=== PATIENT | female | born 1955 | race Caucasian/White ===

== ENCOUNTER 2019-10-07 20:32 | Emergency (ER) | payer OTHER, SELFPAY ==
[2019-10-07] VITALS (11 sets, daily range): BP systolic 113–136; BP diastolic 72–79; PULSE 84–101; RESP 15–23; TEMP 36.6; O2SAT 91–98; BMI 21.9
--- NOTE | 2019-10-07 20:52 | XRR_ITS ---
PROCEDURE INFORMATION: Exam: XR Chest, 1 View Exam date and time: 10/07/2019 8:54 PM Age: 64 years old Clinical indication: Shortness of breath; Additional info: Admission TECHNIQUE: Imaging protocol: XR of the chest Views: 1 view. COMPARISON: CR Chest 1 [place] [id number] 09/02/2019 10:57 AM FINDINGS: Lungs: Emphysema. Stable interstitial scarring and atelectasis in the lung bases. Pleural space: Unremarkable. No pleural effusion. No pneumothorax. Heart/Mediastinum: Unremarkable. No cardiomegaly. Diaphragm: Partial eventration of the right and left diaphragm. Bones/joints: Lumbar fusion hardware. XR/XR chest 1V portable [id number] IMPRESSION: No acute findings.
--- NOTE | 2019-10-07 20:52 | ECG_ITS ---
Measurements Intervals [place] Rate: 91 P: -19 MA: 127 QRS: -21 QRSD: 77 T: -30 QT: 352 QTc: 435 SINUS RHYTHM LEFT ATRIAL ENLARGEMENT [-0.15mV P WAVE IN V1/V2] LOW QRS VOLTAGE IN PRECORDIAL LEADS [QRS DEFLECTION < 1.0 mV IN CHEST LEADS] ANTEROSEPTAL MYOCARDIAL INFARCTION , OF INDETERMINATE AGE [40+ ms Q WAVE IN V1-V4] Compared to ECG 08/30/2019 16:48:40 Low QRS voltage now present Indeterminate axis no longer present Myocardial infarct finding still present Electronically Signed On 10-08-2019 9:32:30 CONVENTIONAL MACHINIST by Beto Rivera M.D. [id number]
--- NOTE | 2019-10-07 20:58 | ECG_ITS ---
Measurements Intervals [place] Rate: 91 P: -19 UT: 127 QRS: -21 QRSD: 77 T: -30 QT: 352 QTc: 435 SINUS RHYTHM LEFT ATRIAL ENLARGEMENT [-0.15mV P WAVE IN V1/V2] LOW QRS VOLTAGE IN PRECORDIAL LEADS [QRS DEFLECTION < 1.0 mV IN CHEST LEADS] ANTEROSEPTAL MYOCARDIAL INFARCTION , OF INDETERMINATE AGE [40+ ms Q WAVE IN V1-V4] Compared to ECG 08/30/2019 16:48:40 Low QRS voltage now present Indeterminate axis no longer present Myocardial infarct finding still present Electronically Signed On 10-08-2019 9:32:26 TRANSIT MIXER DRIVER by Beto Rivera M.D. [id number]
--- NOTE | 2019-10-07 20:58 | ED_ITS ---
HPI - SOB/Dyspnea General: Chief Complaint: Shortness of Breath/Dyspnea Stated Complaint: SOB Time Seen by Provider: 10/07/19 20:48 History of Present Illness: HPI Narrative: Patient complains of shortness of breath for a long time. Was recently diagnosed with pneumonia. Patient has been increased shortness of breath the last 2 to 3 days. Does have productive cough. Does complain of fever. Patient is on 3 L nasal cannula at home recently started on Pulmicort MD elicited complaint: shortness of breath and cough Pertinent past history: COPD Context: recent illness Timing: constant and progressively worsening Severity: severe Exacerbating factors: lying flat, exertion and coughing Relieving factors: oxygen Associated symptoms: Reports chest congestion and fever(s); Deny abdominal pain, chest pain, extremity pain, nausea or vomiting Treatment prior to arrival: oxygen and bronchodilator Review of Systems Const: Reports: fever and chills; Denies: body aches Eyes: Denies: change in vision or blurry vision ENMT: Denies: throat pain or nasal congestion Card: Denies: chest pain or shortness of breath on exertion Resp: Reports: shortness of breath, productive cough, change in phlegm color and chest congestion; Denies: non-productive cough GI: Denies: abdominal pain, nausea or vomiting Musc: Denies: extremity pain Skin/Breast: Denies: rash Neuro: Denies: headache Psych: Denies: anxiety or depression Jenaro/Lymph: Denies: easy bruising PFSH ED PFSH: Statuses (acute, chronic, etc) shown below reflect problem list status as previously entered and may not be historically accurate Medical History (Updated 10/07/19 @ 23:11 by MARGIE Kennedy) Anxiety (Acute) Bilateral carotid artery stenosis (Acute) Carotid artery stenosis (Acute) Cervical post-laminectomy syndrome (Acute) COPD (chronic obstructive pulmonary disease) (Acute) Hyperlipidemia, unspecified (Acute) Left peroneal mononeuropathy (Acute) Low back pain (Acute) Lung nodule (Acute) PAD (peripheral artery disease) (Acute) Pseudarthrosis after fusion or arthrodesis (Acute) Sleep apnea (Acute) Spondylolisthesis, lumbar region (Acute) Surgical History (Updated 09/28/19 @ 13:06 by Maylin Whittaker MD) H/O eye surgery (Acute) History of appendectomy (Acute) History of back surgery (Acute) History of bladder surgery (Acute) History of cholecystectomy (Acute) History of hysterectomy (Acute) History of lumbar fusion (Acute) History of lumbar surgery (Acute) Social History Smoking and tobacco status: current every day smoker cigarettes Packs smoked per day: 1.5 Years cigarettes smoked: 40 Alcohol intake: never Lives independently: Yes Household members: spouse Marital status: Current occupational status: retired and disabled History of recent travel: No Current gender identity: Female Physical Exam Const: COMMON NORMALS: no apparent distress, average body habitus and oriented x3 HENMT: COMMON NORMALS: normocephalic HEAD & SCALP: normal to inspection and normocephalic FACE & SINUS: normal facial exam Eye: COMMON NORMALS: conjunctivae normal GENERAL EYE: normal appearance of both eyes CONJUNCTIVA: Yes conjunctivae normal Neck/C-Spine: COMMON NORMALS: no JVD Chest: COMMONS NORMALS: inspection of chest normal Resp: EFFORT & INSPECTION: Yes respiratory distress, Yes labored and Yes actively coughing AUSCULTATION: rales and diminished lung sounds Cardio: COMMON NORMALS: no JVD, regular rate and regular rhythm RATE: regular rate RHYTHM: regular rhythm GI: COMMON NORMALS: normal to inspection, nondistended, normoactive bowel sounds Extremity: COMMON NORMALS: normal to inspection and full ROM Neuro: COMMON NORMALS: oriented x3 Course Vital Signs: Vital signs: Vital Signs Temperature 97.8 F 10/07/19 20:39 Pulse Rate 86 10/07/19 23:00 Respiratory Rate 21 H 10/07/19 23:00 Blood Pressure 115/72 10/07/19 23:00 Pulse Oximetry 91 10/07/19 23:00 MDM - SOB/Dyspnea MDM Narrative: Medical decision making narrative: Discussed case with Dr. Clifton. Agreed on treatment plan. Order in for home to provide another full bottle of oxygen and a larger concentrator at home. Discussed this with community service officer coordinator and they will fax in 1. Lab Data: Labs: Lab Results 10/07/19 10/07/19 10/07/19 Range/Units 21:26 21:26 21:26 WBC 9.6 (4.0-10.0) 10^3/ uL RBC 5.14 (4.1-5.3) 10^6/u L Hgb 17.2 H (11.5-15.3) g/dL Hct 51.3 H (37.0-47.0) % MCV 99.8 H (81-99) fL MCH 33.5 (28.0-34.0) pg MCHC 33.5 (30.0-36.0) g/dL RDW 15.6 H (12.1-15.1) % Plt Count 154 (130-400) 10^3/c mm MPV 10.9 H (7.4-10.4) fL Neut % (Auto) 70.8 % Lymph % (Auto) 21.6 % Winston % (Auto) 6.9 % Eos % (Auto) 0.1 % Baso % (Auto) 0.2 % Neut # (Auto) 6.8 (1.8-7.7) 10^3/u L Lymph # (Auto) 2.1 (0.8-4.8) 10^3/u L Winston # (Auto) 0.7 (0.2-0.9) 10^3/u L Eos # (Auto) 0.0 (0.0-0.8) 10^3/u L Baso # (Auto) 0.0 (0.0-0.1) 10^3/u L Nucleated RBC % (a uto) 0.4 % Nucleated RBCs # 0.0 /100WBC Specimen Type Sample Site ABG pH (7.35-7.45) ABG pCO2 (35-45) mmHg ABG pO2 (80.0-100.0) mmH g ABG HCO3 (22-26) mmol/L ABG O2 Saturation ABG Base Excess (-2.0-2.0) mmol/ L Charles Test A-a O2 Gradient (5-10) mmHg Hematocrit (37-47) % Hgb O2 Saturation (95-100) % Carboxyhemoglobin (0.4-20.1) %THgb Methemoglobin (0.4-1.5) % Total Hemoglobin (12-16) g/dL Ionized Calcium (1.1-1.4) mmol/L O2 Delivery Device O2 Liters/Min % Vacuum Cooker Operator ID Sodium 141 (136-145) mmol/L Potassium 3.5 (3.5-5.1) mmol/L Chloride 93 L (98-107) mmol/L Carbon Dioxide 32 H (22-29) mmol/L Anion Gap 19.5 H (5-19) BUN 17 (8-23) mg/dL Creatinine 0.7 (0.5-0.9) mg/dL GFR Calculation 84.8 L (90-130) mL/min Glucose 101 (74-106) mg/dL Lactic Acid 1.0 (0.5-2.2) mmol/L Calcium 10.7 H (8.8-10.2) mg/Dl Total Bilirubin 0.6 (0.15-1.2) mg/dL AST 29 (0-32) U/L ALT 26 (0-33) U/L Alkaline Phosphata se 79 (35-105) IU/L Troponin T Baselin e (0-10) ng/mL Total Protein 6.6 (6.6-8.7) g/dL Albumin 3.3 L (3.5-5.2) g/dL Globulin 3.3 (1.3-4.6) g/dL 10/07/19 10/07/19 Range/Units 21:26 21:30 WBC (4.0-10.0) 10^3/ uL RBC (4.1-5.3) 10^6/u L Hgb (11.5-15.3) g/dL Hct (37.0-47.0) % MCV (81-99) fL MCH (28.0-34.0) pg MCHC (30.0-36.0) g/dL RDW (12.1-15.1) % Plt Count (130-400) 10^3/c mm MPV (7.4-10.4) fL Neut % (Auto) % Lymph % (Auto) % Winston % (Auto) % Eos % (Auto) % Baso % (Auto) % Neut # (Auto) (1.8-7.7) 10^3/u L Lymph # (Auto) (0.8-4.8) 10^3/u L Winston # (Auto) (0.2-0.9) 10^3/u L Eos # (Auto) (0.0-0.8) 10^3/u L Baso # (Auto) (0.0-0.1) 10^3/u L Nucleated RBC % (a uto) % Nucleated RBCs # /100WBC Specimen Type Arterial Sample Site Radial, left ABG pH 7.40 (7.35-7.45) ABG pCO2 58.3 H (35-45) mmHg ABG pO2 67.8 L (80.0-100.0) mmH g ABG HCO3 36.3 H (22-26) mmol/L ABG O2 Saturation 93.1 ABG Base Excess 8.7 H (-2.0-2.0) mmol/ L Charles Test Pos A-a O2 Gradient 12.6 H (5-10) mmHg Hematocrit 55.2 H (37-47) % Hgb O2 Saturation 89.1 L (95-100) % Carboxyhemoglobin 3.7 (0.4-20.1) %THgb Methemoglobin 0.6 (0.4-1.5) % Total Hemoglobin 18.0 H (12-16) g/dL Ionized Calcium 1.3 (1.1-1.4) mmol/L O2 Delivery Device Nc O2 Liters/Min 3.0 % Vacuum Cooker Operator ID [email or web address] Sodium 143.0 (136-145) mmol/L Potassium 3.4 L (3.5-5.1) mmol/L Chloride (98-107) mmol/L Carbon Dioxide (22-29) mmol/L Anion Gap (5-19) BUN (8-23) mg/dL Creatinine (0.5-0.9) mg/dL GFR Calculation (90-130) mL/min Glucose 89.0 (74-106) mg/dL Lactic Acid (0.5-2.2) mmol/L Calcium (8.8-10.2) mg/Dl Total Bilirubin (0.15-1.2) mg/dL AST (0-32) U/L ALT (0-33) U/L Alkaline Phosphata se (35-105) IU/L Troponin T Baselin e 46 H (0-10) ng/mL Total Protein (6.6-8.7) g/dL Albumin (3.5-5.2) g/dL Globulin (1.3-4.6) g/dL EKG Data^: EKG 1: EKG Interpretation Date: 10/07/19 EKG interpretation time: 20:56 Interpretation: SR, 91bpm, Left atrial enlargement EKG 2: EKG Interpretation Date: 10/07/19 EKG interpretation time: 23:16 Interpretation: Dr. Little reviewed, No change Discharge Plan Discharge Patient Disposition: Home, Self-Care Clinical Impression: Acute exacerbation of chronic obstructive airways disease Condition: Stable Prescriptions: New doxycycline hyclate 100 mg capsule 100 mg PO BID 10 Days Qty: 20 RF: 0 prednisone 10 mg tablet 10 mg PO DAILY Qty: 14 RF: 0 No Action ibuprofen 200 mg tablet 400 mg PO BID RF: 0 ipratropium-albuterol 0.5 mg-3 mg(2.5 mg base)/3 mL solution for nebulization 3 ml INHALATION BID PRNRF: 0 prednisone 10 mg tablet 10 mg PO ONCE RF: 0 benzonatate [Tessalon Perles] 100 mg capsule 100 mg PO TID PRNRF: 0 rizatriptan [Maxalt-MOBILITY ARCHITECT MANAGER] 10 mg tablet,disintegrating 10 mg PO ONCE PRNRF: 0 budesonide [Pulmicort] 0.5 mg/2 mL suspension for nebulization 0.5 mg INHALATION BID 90 Days Qty: 360 RF: 3 guaifenesin 600 mg tablet extended release 12hr 600 mg PO BID PRN (Reason: cough) Qty: 60 RF: 0 fluticasone propion-salmeterol [Advair Diskus] 100-50 mcg/dose blister with device 1 puff INHALATION BID RF: 0 albuterol sulfate 90 mcg/actuation aerosol powdr breath activated 2 inh INHALATION Q6H PRNRF: 0 albuterol sulfate 2.5 mg /3 mL (0.083 %) solution for nebulization 2.5 mg INHALATION Q4H PRNRF: 0 ipratropium bromide 0.03 % spray,non-aerosol 2 spray INTRANASAL BID RF: 0 calcium citrate-vitamin D3 315-200 mg-unit tablet 2 tab PO ONCE RF: 0 codeine-guaifenesin 10-100 mg/5 mL liquid 5 ml PO Q4H PRNRF: 0 cyclobenzaprine 10 mg tablet 10 mg PO BID PRNRF: 0 diazepam 5 mg tablet 5 mg PO TID PRNRF: 0 fluticasone propionate [Flonase Allergy Relief] 50 mcg/actuation spray,suspension 2 spray INTRANASAL BID RF: 0 gabapentin 600 mg tablet 600 mg PO TID RF: 0 hydrochlorothiazide 50 mg tablet 50 mg PO QAM RF: 0 magnesium 250 mg tablet 250 mg PO ONCE RF: 0 meclizine 25 mg tablet 25 mg PO TID RF: 0 melatonin 3 mg capsule 3 mg PO ONCE RF: 0 omeprazole 20 mg capsule,delayed release(DR/EC) 20 mg PO ONCE RF: 0 oxycodone 30 mg tablet 30 mg PO Q4H PRNRF: 0 potassium 99 mg tablet 99 mg PO ONCE RF: 0 Premarin 0.625 mg tablet 0.625 mg PO ONCE RF: 0 Probiotic Gold Acidophilus 1 billion cell capsule 1,000 mmu cells PO ONCE RF: 0 ranitidine HCl [Acid Control (ranitidine)] 150 mg tablet 150 mg PO BID RF: 0 montelukast [Singulair] 10 mg tablet 10 mg PO ONCE RF: 0 Spiriva with HandiHaler 18 mcg capsule, w/inhalation device 1 cap INHALATION ONCE RF: 0 Discharge Orders: Discharge Order (Routine); Ordered 10/07/19 Ordered By: Jonas Alex Referrals: Samantha Riggins APN [Primary Care Provider] - Discharge Diet: Usual diet Discharge Activity: Increase activity as tolerated Patient Instructions: Chronic Obstructive Pulmonary Disease (ED) Activity Restrictions/Additional Instructions: Follow-up with medical provider as directed. Take medications as prescribed. Return to the ER or your medical provider if condition worsens. Please read and understand discharge instructions. If any questions ask please. Home will be co ntacted and another bottle of oxygen will break be brought to the house plus a concentrator. Coding Level of Care Code ED Motel Maid for Chg Fwd Exam Problem Focused
--- NOTE | 2019-10-07 21:34 | PC.NURSE ---
XRAY IN ROOM
--- NOTE | 2019-10-07 21:34 | PC.NURSE ---
HCP IN ROOM
[2019-10-07 21:38] LABS: Basophils % 0.2 %; Eosinophils % 0.1 %; Hematocrit 51.3 % (37.0-47.0); Hemoglobin 17.2 g/dL (11.5-15.3); Lymphocytes # 2.1 10^3/uL (0.8-4.8); Lymphocytes % 21.6 %; Mean Corpuscular HGB Conc 33.5 g/dL (30.0-36.0); Mean Corpuscular Hemoglobin 33.5 pg (28.0-34.0); Mean Corpuscular Volume 99.8 fL (81-99); Mean Platelet Volume 10.9 fL (7.4-10.4); Monocytes # 0.7 10^3/uL (0.2-0.9); Monocytes % 6.9 %; Neutrophils # 6.8 10^3/uL (1.8-7.7); Neutrophils % 70.8 %; Nucleated Red Blood Cells % 0.4 %; Platelet Count 154 10^3/cmm (130-400); Red Blood Count 5.14 10^6/uL (4.1-5.3); Red Cell Distribution Width 15.6 % (12.1-15.1); White Blood Count 9.6 10^3/uL (4.0-10.0)
[2019-10-07 21:38] LABS: ABG PCO2 58.3 mmHg (35-45); Alveolar-Arterial Oxygen Gradi 12.6 mmHg (5-10); Arterial Blood Gas Hematocrit 55.2 % (37-47); Base Excess ABG 8.7 mmol/L (-2.0-2.0); Blood Gas Allen Test Pos; Blood Gas Sample Site Radial, left; Blood Gas Sample Type Arterial; Carboxyhemoglobin 3.7 %THgb (0.4-20.1); HCO3 ABG 36.3 mmol/L (22-26); HGB O2 Sat 89.1 % (95-100); Ionized Calcium Level - ABG 1.3 mmol/L (1.1-1.4); Methemoglobin 0.6 % (0.4-1.5); Oxygen Device NC; Oxygen Saturation ABG 93.1; PO2 ABG 67.8 mmHg (80.0-100.0); Potassium Level - ABG 3.4 mmol/L (3.5-5.0)
[2019-10-07] MEDS: ipratropium-albuterol 3 mL Neb INHALATION ×2 (21:40→22:55)
[2019-10-07 22:11] LABS: Troponin(5th) Baseline 46 ng/mL (0-10)
[2019-10-07 22:39] LABS: Alanine Aminotransferase 26 U/L (0-33); Albumin Level 3.3 g/dL (3.5-5.2); Alkaline Phosphatase 79 IU/L (35-105); Anion Gap 19.5 (5-19); Aspartate Amino Transferase 29 U/L (0-32); Blood Urea Nitrogen 17 mg/dL (8-23); Calcium 10.7 mg/Dl (8.8-10.2); Carbon Dioxide 32 mmol/L (22-29); Chloride 93 mmol/L (98-107); Globulin 3.3 g/dL (1.3-4.6); Glomerular Filtration Rate 84.8 mL/min (90-130); Glucose 101 mg/dL (74-106); Potassium 3.5 mmol/L (3.5-5.1); Sodium 141 mmol/L (136-145); Total Bilirubin 0.6 mg/dL (0.15-1.2); Total Protein 6.6 g/dL (6.6-8.7)
--- NOTE | 2019-10-07 22:58 | ECG_ITS ---
Measurements Intervals [place] Rate: 84 P: 82 CO: 113 QRS: 41 QRSD: 104 T: 89 QT: 379 QTc: 449 SINUS RHYTHM WITH SHORT CO INTERVAL POSSIBLE RIGHT ATRIAL ENLARGEMENT [0.25mV P WAVE] POSSIBLE LEFT ATRIAL ENLARGEMENT [-0.1mV P WAVE IN V1/V2] INDETERMINATE AXIS LOW QRS VOLTAGE IN PRECORDIAL LEADS [QRS DEFLECTION < 1.0 mV IN CHEST LEADS] ANTEROSEPTAL MYOCARDIAL INFARCTION , OF INDETERMINATE AGE [40+ ms Q WAVE IN V1-V4] Compared to ECG 08/30/2019 16:48:40 Short CO interval now present Low QRS voltage now present Myocardial infarct finding still present Electronically Signed On 10-08-2019 9:34:28 TUGBOAT OPERATOR by Beto Rivera M.D. [email or web address]
[2019-10-07] MEDS: doxycycline 100 mg Tablet PO (23:21)
[2019-10-07] MEDS: predniSONE 20 mg Tablet PO (23:21)
[2019-10-07 23:33] LABS: Troponin 5 2HR 41.18 ng/mL (0-10); Troponin 5 2HR Delta -4.82 ABS# (0-10)
== END 2019-10-07 23:41 | disposition home or self-care (01) ==
PROVIDERS: Emergency Provider Nurse Practitioner Family; Family Provider Nurse Practitioner; PCP Nurse Practitioner
DX: J44.1 Chronic obstructive pulmonary disease with (acute) exacerbation (principal); E78.5 Hyperlipidemia, unspecified; F17.210 Nicotine dependence, cigarettes, uncomplicated
CPT/HCPCS: 36415; 36600; 71045; 80051; 80053; 82810; 83605; 83986; 84484; 85025; 87040; 93005; 94640; 96374; 99283; J2930; J7512

== ENCOUNTER 2019-10-09 15:03 | Inpatient (IN) | payer OTHER, SELFPAY ==
[2019-10-09] VITALS (7 sets, daily range): BP systolic 75–151; BP diastolic 44–70; PULSE 75–98; RESP 15–22; TEMP 36.4–36.6; O2SAT 84–966; BMI 21.9
--- NOTE | 2019-10-09 15:20 | ED_ITS ---
Entered by Cheryl Yeh, acting as scribe for HPI - General Adult General: Chief complaint: General Medical Stated complaint: confused/sob Time Seen by Provider: 10/09/19 15:20 History of Present Illness: HPI narrative: 64 yo female presents with shortness of breath and confusion. Pts o2 sats were in the 80s in the waiting room. Pt states that she wan'ts to go home. Pt is confused and is repeating herself. Pt is has some o2 at home but doesn't typically use it all the time. states that pt has been slightly confused since being discharged on Wednesday from the ER. MD complaint: shortness of breath and confusion Associated symptoms: Reports dyspnea; Deny chest pain, malaise, nausea, rash or vomiting Review of Systems Const: Denies: fever, chills, body aches, change in appetite, fatigue or malaise ENMT: Denies: throat pain, ear pain, nasal discharge or nasal congestion Card: Reports: shortness of breath on exertion and shortness of breath when lying down; Denies: chest pain or edema Resp: Reports: shortness of breath; Denies: productive cough or non-productive cough GI: Denies: abdominal pain, nausea, vomiting, vomiting blood, coffee grounds in vomit, diarrhea, constipation, bloating, blood in stool or black tarry stool : Denies: flank pain, difficulty urinating, painful urination, urinary frequency or urinary urgency Skin/Breast: Denies: rash or itching PFSH ED PFSH: Statuses (acute, chronic, etc) shown below reflect problem list status as previously entered and may not be historically accurate Medical History Anxiety (Acute) Bilateral carotid artery stenosis (Acute) Carotid artery stenosis (Acute) Cervical post-laminectomy syndrome (Acute) COPD (chronic obstructive pulmonary disease) (Acute) Hyperlipidemia, unspecified (Acute) Left peroneal mononeuropathy (Acute) Low back pain (Acute) Lung nodule (Acute) PAD (peripheral artery disease) (Acute) Pseudarthrosis after fusion or arthrodesis (Acute) Sleep apnea (Acute) Spondylolisthesis, lumbar region (Acute) Surgical History H/O eye surgery (Acute) History of appendectomy (Acute) History of back surgery (Acute) History of bladder surgery (Acute) History of cholecystectomy (Acute) History of hysterectomy (Acute) History of lumbar fusion (Acute) History of lumbar surgery (Acute) Social History Smoking and tobacco status: current every day smoker cigarettes Packs smoked per day: 1.5 Years cigarettes smoked: 40 Alcohol intake: never Lives independently: Yes Household members: spouse Marital status: Current occupational status: retired and disabled History of recent travel: No Current gender identity: Female Physical Exam Const: COMMON NORMALS: apparent distress GENERAL APPEARANCE: cooperative and in distress ORIENTATION/CONSCIOUSNESS: Yes awake, Yes oriented to person and Yes confused HENMT: COMMON NORMALS: normocephalic, head/scalp atraumatic, hearing grossly normal bilaterally, external ears normal, EAC's normal, TM's normal bilaterally, nasal mucous membranes and turbinates normal, moist oral mucous membranes and oropharynx normal HEAD & SCALP: normocephalic and atraumatic NOSE: nasal mucous membranes and turbinates normal EXTERNAL EAR: Yes external ears normal EXTERNAL AUDITORY CANAL: EAC's normal TYMPANIC MEMBRANE: TM's normal bilaterally Eye: COMMON NORMALS: PERRL, EOMs intact bilaterally, conjunctivae normal and no scleral icterus CONJUNCTIVA: Yes conjunctivae normal PUPIL: Yes PERRL Neck/C-Spine: COMMON NORMALS: full ROM, no lymphadenopathy, supple and no JVD Lymph: LYMPHATIC: no lymphadenopathy noted and no lymphedema noted Resp: COMMON NORMALS: normal respiratory effort, no retractions, no use of accessory muscles and clear to auscultation bilaterally AUSCULTATION: clear to auscultation bilaterally Cardio: COMMON NORMALS: no JVD, regular rate, regular rhythm and no murmurs RATE: regular rate RHYTHM: regular rhythm GI: COMMON NORMALS: soft to palpation and no hepatosplenomegaly AUSCULTATION: Yes normoactive bowel sounds PALPATION: Yes soft, No tender, No guarding and Yes no hepatosplenomegaly Extremity: COMMON NORMALS: normal to inspection, normal capillary refill, no clubbing, cyanosis or edema, no calf tenderness and no pedal edema Neuro: SENSORIUM/ORIENTATION: Yes oriented to person Skin: COMMON NORMALS: no rashes or lesions noted GENERAL SKIN EXAM: no rashes or lesions noted Course Vital Signs: Vital signs: Vital Signs Temperature 99.0 F 10/11/19 03:00 Pulse Rate 89 10/11/19 03:57 Respiratory Rate 20 H 10/11/19 03:53 Blood Pressure 132/85 10/11/19 03:00 Pulse Oximetry 98 10/11/19 03:53 MDM - General Adult Lab Data: Labs: Lab Results 10/09/19 10/09/19 10/09/19 Range/Units 15:47 15:54 15:54 WBC 10.8 H (4.0-10.0) 10^3/ uL RBC 4.98 (4.1-5.3) 10^6/u L Hgb 17.1 H (11.5-15.3) g/dL Hct 51.2 H (37.0-47.0) % MCV 102.8 H (81-99) fL MCH 34.3 H (28.0-34.0) pg MCHC 33.4 (30.0-36.0) g/dL RDW 16.4 H (12.1-15.1) % Plt Count 150 (130-400) 10^3/c mm MPV 11.2 H (7.4-10.4) fL Neut % (Auto) 86.7 % Lymph % (Auto) 9.1 % [place] % (Auto) 3.6 % Eos % (Auto) 0.1 % Baso % (Auto) 0.1 % Neut # (Auto) 9.3 H (1.8-7.7) 10^3/u L Lymph # (Auto) 1.0 (0.8-4.8) 10^3/u L [place] # (Auto) 0.4 (0.2-0.9) 10^3/u L Eos # (Auto) 0.0 (0.0-0.8) 10^3/u L Baso # (Auto) 0.0 (0.0-0.1) 10^3/u L Nucleated RBC % (a uto) 0 % Nucleated RBCs # 0.0 /100WBC D-Dimer (0-0.59) ug/mIFE U Specimen Type Arterial Sample Site Brachial, left ABG pH 7.48 H (7.35-7.45) ABG pCO2 46.0 H (35-45) mmHg ABG pO2 65.0 L (80.0-100.0) mmH g ABG HCO3 34.4 H (22-26) mmol/L ABG O2 Saturation 92.8 ABG Base Excess 9.3 H (-2.0-2.0) mmol/ L Charles Test Pos A-a O2 Gradient 135.9 H (5-10) mmHg Hematocrit 52.6 H (37-47) % Hgb O2 Saturation 91.0 L (95-100) % Carboxyhemoglobin 1.5 (0.4-20.1) %THgb Methemoglobin 0.4 (0.4-1.5) % Total Hemoglobin 17.1 H (12-16) g/dL Sodium 142.0 142 (131-143) mmol/L Potassium 3.4 L 3.5 (3.5-5.0) mmol/L Glucose 106.0 110 H (70-115) mg/dL Ionized Calcium 1.2 (1.1-1.4) mmol/L O2 Delivery Device Nc O2 Liters/Min 4.0 % FiO2 36.0 % Commission Associate ID cak Chloride 93 L (98-107) mmol/L Carbon Dioxide 32 H (22-29) mmol/L Anion Gap 20.5 H (5-19) BUN 21 (8-23) mg/dL Creatinine 0.8 (0.5-0.9) mg/dL GFR Calculation 72.7 L (90-130) mL/min Lactate (0.5-2.2) mmol/L Calcium 9.7 (8.8-10.2) mg/Dl Total Bilirubin 0.7 (0.15-1.2) mg/dL AST 32 (0-32) U/L ALT 23 (0-33) U/L Alkaline Phosphata se 69 (35-105) IU/L Total Protein 6.7 (6.6-8.7) g/dL Albumin 3.4 L (3.5-5.2) g/dL Globulin 3.3 (1.3-4.6) g/dL Lipase 3 L (13-60) U/L Urine Color (Yellow) Urine Appearance (CLEAR) Urine pH (5-7) Ur Specific Gravit y (1.005-1.030) Urine Protein (Negative) Urine Glucose (UA) (Normal) Urine Ketones (Negative) Urine Occult Blood (Negative) Urine Nitrate (Negative) Urine Bilirubin (NEGATIVE) Prot Sulfosalicyli c Acd Urine Urobilinogen (Negative) mg/dL Ur Leukocyte Isaura ase (Negative) Urine RBC (0-2) /hpf Urine WBC (0-5) /hpf Ur Squamous Epith Cells (0-5) Amorphous Sediment Urine Bacteria (NONE) Salicylates < 0.3 L (3-10) mg/dL Urine Opiates Scre en (Negative) ng/mL Acetaminophen < 5.0 L (10-30) ug/mL Ur Barbiturates Sc reen (Negative) ng/mL Ur Phencyclidine S crn (Negative) ng/mL Ur Amphetamines Sc reen (Negative) ng/mL U Benzodiazepines Scrn (Negative) ng/mL Urine Cocaine Scre en (Negative) ng/mL U Marijuana (THC) Screen (Negative) ng/mL Ethyl Alcohol < 10 (0-10) mg/dL Serum Ketones (Negative) 10/09/19 10/09/19 10/09/19 Range/Units 15:54 15:54 16:30 WBC (4.0-10.0) 10^3/ uL RBC (4.1-5.3) 10^6/u L Hgb (11.5-15.3) g/dL Hct (37.0-47.0) % MCV (81-99) fL MCH (28.0-34.0) pg MCHC (30.0-36.0) g/dL RDW (12.1-15.1) % Plt Count (130-400) 10^3/c mm MPV (7.4-10.4) fL Neut % (Auto) % Lymph % (Auto) % [place] % (Auto) % Eos % (Auto) % Baso % (Auto) % Neut # (Auto) (1.8-7.7) 10^3/u L Lymph # (Auto) (0.8-4.8) 10^3/u L [place] # (Auto) (0.2-0.9) 10^3/u L Eos # (Auto) (0.0-0.8) 10^3/u L Baso # (Auto) (0.0-0.1) 10^3/u L Nucleated RBC % (a uto) % Nucleated RBCs # /100WBC D-Dimer 6.91 H (0-0.59) ug/mIFE U Specimen Type Sample Site ABG pH (7.35-7.45) ABG pCO2 (35-45) mmHg ABG pO2 (80.0-100.0) mmH g ABG HCO3 (22-26) mmol/L ABG O2 Saturation ABG Base Excess (-2.0-2.0) mmol/ L Charles Test A-a O2 Gradient (5-10) mmHg Hematocrit (37-47) % Hgb O2 Saturation (95-100) % Carboxyhemoglobin (0.4-20.1) %THgb Methemoglobin (0.4-1.5) % Total Hemoglobin (12-16) g/dL Sodium (131-143) mmol/L Potassium (3.5-5.0) mmol/L Glucose (70-115) mg/dL Ionized Calcium (1.1-1.4) mmol/L O2 Delivery Device O2 Liters/Min % FiO2 % Commission Associate ID Chloride (98-107) mmol/L Carbon Dioxide (22-29) mmol/L Anion Gap (5-19) BUN (8-23) mg/dL Creatinine (0.5-0.9) mg/dL GFR Calculation (90-130) mL/min Lactate 1.1 (0.5-2.2) mmol/L Calcium (8.8-10.2) mg/Dl Total Bilirubin (0.15-1.2) mg/dL AST (0-32) U/L ALT (0-33) U/L Alkaline Phosphata se (35-105) IU/L Total Protein (6.6-8.7) g/dL Albumin (3.5-5.2) g/dL Globulin (1.3-4.6) g/dL Lipase (13-60) U/L Urine Color (Yellow) Urine Appearance (CLEAR) Urine pH (5-7) Ur Specific Gravit y (1.005-1.030) Urine Protein (Negative) Urine Glucose (UA) (Normal) Urine Ketones (Negative) Urine Occult Blood (Negative) Urine Nitrate (Negative) Urine Bilirubin (NEGATIVE) Prot Sulfosalicyli c Acd Urine Urobilinogen (Negative) mg/dL Ur Leukocyte Isaura ase (Negative) Urine RBC (0-2) /hpf Urine WBC (0-5) /hpf Ur Squamous Epith Cells (0-5) Amorphous Sediment Urine Bacteria (NONE) Salicylates (3-10) mg/dL Urine Opiates Scre en (Negative) ng/mL Acetaminophen (10-30) ug/mL Ur Barbiturates Sc reen (Negative) ng/mL Ur Phencyclidine S crn (Negative) ng/mL Ur Amphetamines Sc reen (Negative) ng/mL U Benzodiazepines Scrn (Negative) ng/mL Urine Cocaine Scre en (Negative) ng/mL U Marijuana (THC) Screen (Negative) ng/mL Ethyl Alcohol (0-10) mg/dL Serum Ketones Negative (Negative) 10/09/19 10/09/19 Range/Units 17:16 17:16 WBC (4.0-10.0) 10^3/ uL RBC (4.1-5.3) 10^6/u L Hgb (11.5-15.3) g/dL Hct (37.0-47.0) % MCV (81-99) fL MCH (28.0-34.0) pg MCHC (30.0-36.0) g/dL RDW (12.1-15.1) % Plt Count (130-400) 10^3/c mm MPV (7.4-10.4) fL Neut % (Auto) % Lymph % (Auto) % [place] % (Auto) % Eos % (Auto) % Baso % (Auto) % Neut # (Auto) (1.8-7.7) 10^3/u L Lymph # (Auto) (0.8-4.8) 10^3/u L [place] # (Auto) (0.2-0.9) 10^3/u L Eos # (Auto) (0.0-0.8) 10^3/u L Baso # (Auto) (0.0-0.1) 10^3/u L Nucleated RBC % (a uto) % Nucleated RBCs # /100WBC D-Dimer (0-0.59) ug/mIFE U Specimen Type Sample Site ABG pH (7.35-7.45) ABG pCO2 (35-45) mmHg ABG pO2 (80.0-100.0) mmH g ABG HCO3 (22-26) mmol/L ABG O2 Saturation ABG Base Excess (-2.0-2.0) mmol/ L Charles Test A-a O2 Gradient (5-10) mmHg Hematocrit (37-47) % Hgb O2 Saturation (95-100) % Carboxyhemoglobin (0.4-20.1) %THgb Methemoglobin (0.4-1.5) % Total Hemoglobin (12-16) g/dL Sodium (131-143) mmol/L Potassium (3.5-5.0) mmol/L Glucose (70-115) mg/dL Ionized Calcium (1.1-1.4) mmol/L O2 Delivery Device O2 Liters/Min % FiO2 % Commission Associate ID Chloride (98-107) mmol/L Carbon Dioxide (22-29) mmol/L Anion Gap (5-19) BUN (8-23) mg/dL Creatinine (0.5-0.9) mg/dL GFR Calculation (90-130) mL/min Lactate (0.5-2.2) mmol/L Calcium (8.8-10.2) mg/Dl Total Bilirubin (0.15-1.2) mg/dL AST (0-32) U/L ALT (0-33) U/L Alkaline Phosphata se (35-105) IU/L Total Protein (6.6-8.7) g/dL Albumin (3.5-5.2) g/dL Globulin (1.3-4.6) g/dL Lipase (13-60) U/L Urine Color Dark yellow (Yellow) Urine Appearance Hazy A (CLEAR) Urine pH 9 H (5-7) Ur Specific Gravit y 1.015 (1.005-1.030) Urine Protein Neg (Negative) Urine Glucose (UA) Norm (Normal) Urine Ketones 2+ H (Negative) Urine Occult Blood Neg (Negative) Urine Nitrate Negative (Negative) Urine Bilirubin Neg (NEGATIVE) Prot Sulfosalicyli c Acd Negative Urine Urobilinogen 1 H (Negative) mg/dL Ur Leukocyte Isaura ase Negative (Negative) Urine RBC None (0-2) /hpf Urine WBC 0-4 H (0-5) /hpf Ur Squamous Epith Cells 0-4 H (0-5) Amorphous Sediment 2+ Urine Bacteria Trace (NONE) Salicylates (3-10) mg/dL Urine Opiates Scre en Negative (Negative) ng/mL Acetaminophen (10-30) ug/mL Ur Barbiturates Sc reen Negative (Negative) ng/mL Ur Phencyclidine S crn Negative (Negative) ng/mL Ur Amphetamines Sc reen Negative (Negative) ng/mL U Benzodiazepines Scrn Positive H (Negative) ng/mL Urine Cocaine Scre en Negative (Negative) ng/mL U Marijuana (THC) Screen Negative (Negative) ng/mL Ethyl Alcohol (0-10) mg/dL Serum Ketones (Negative) Imaging Data^: CT Head: Radiologist's impression: Signed Patient: Autumn Anne Unit #: [id number] : 1955 Age/Sex: 64 / F ADM Date: 10/09/19 Loc: ER Room/Bed: Attending Dr: Ordering Provider/Ordering MD: Richard Eugene DO Date of Service: 10/09/19 Procedure(s): CT head wo con* [id number] Accession Number(s): [id number] Report Number: [id number] PROCEDURE INFORMATION: Exam: CT Head Without Contrast Exam date and time: 10/09/2019 4:05 PM Age: 64 years old Clinical indication: Altered mental status/memory loss; Other: Not specified; Additional info: AMS TECHNIQUE: Imaging protocol: Computed tomography of the head without contrast. Total DLP: 760.49 mGy-cm Radiation optimization: All CT scans at this facility use at least one of these dose optimization techniques: automated exposure control; mA and/or kV adjustment per patient size (includes targeted exams where dose is matched to clinical indication); or iterative reconstruction. COMPARISON: No relevant prior studies available. FINDINGS: Brain: No acute intracranial hemorrhage, cerebral edema, or midline shift. Ventricles: There is no hydrocephalus. An incidental 7 mm colloid cyst is noted within the 3rd ventricle. Bones/joints: No acute fracture. Sinuses: No acute sinusitis. Mastoid air cells: Visualized mastoid air cells are well aerated. Soft tissues: Unremarkable. CT/CT head wo con* [id number] IMPRESSION: No acute intracranial abnormality. Radiation Dose CTDIVOL = (mGy): DLP = 760.49 (mGy-cm) Dictated By: Yakov Mitchell MD Signed By: Yakov Mitchell MD Signed Date/Time: 10/09/191706 DD/ 05 CXR: Radiologist's impression: Patient: Autumn Anne Unit #: [id number] : [id number] Age/Sex: 64 / F ADM Date: 10/09/19 Loc: ER Room/Bed: Attending Dr: Ordering Provider/Ordering MD: Richard Eugene DO Date of Service: 10/09/19 Procedure(s): XR chest 1V portable [id number] Accession Number(s): [id number] Report Number: [id number] PROCEDURE INFORMATION: Exam: XR Chest, 1 View Exam date and time: 10/09/2019 3:39 PM Age: 64 years old Clinical indication: Condition or disease; Other: Copd; Additional info: Amd, copd TECHNIQUE: Imaging protocol: XR of the chest Views: 1 view. COMPARISON: CR (CHEST, ) 10/07/2019 9:13 PM FINDINGS: Lungs: Unremarkable. No consolidation. Pleural space: Unremarkable. No pleural effusion. No pneumothorax. Heart/Mediastinum: Unremarkable. No cardiomegaly. Bones/joints: Postsurgical hardware seen in the lumbar spine XR/XR chest 1V portable [id number] IMPRESSION: No acute findings. Dictated By: Mendoza Genao Signed By: Mendoza Genao Signed Date/Time: 10/09/191651 DD/ 50 Discharge Plan Discharge Patient Disposition: Admitted As Inpatient Admit Provider: Cam Mariee Condition: Stable Discharge Date/Time: 10/09/19 18:58 Coding Level of Care Code ED Bullet Casting Operator for Chg Fwd Exam Problem Focused The documentation recorded by the Rao jonas Kialy, accurately reflects the service I personally performed and the decisions made by Valorie lambert Curtis L, DO Oct 09, 2019 15:03
--- NOTE | 2019-10-09 15:36 | XRR_ITS ---
PROCEDURE INFORMATION: Exam: XR Chest, 1 View Exam date and time: 10/09/2019 3:39 PM Age: 64 years old Clinical indication: Condition or disease; Other: Copd; Additional info: Amd, copd TECHNIQUE: Imaging protocol: XR of the chest Views: 1 view. COMPARISON: CR (CHEST, ) 10/07/2019 9:13 PM FINDINGS: Lungs: Unremarkable. No consolidation. Pleural space: Unremarkable. No pleural effusion. No pneumothorax. Heart/Mediastinum: Unremarkable. No cardiomegaly. Bones/joints: Postsurgical hardware seen in the lumbar spine XR/XR chest 1V portable [id number] IMPRESSION: No acute findings.
--- NOTE | 2019-10-09 15:39 | CTR_ITS ---
PROCEDURE INFORMATION: Exam: CT Head Without Contrast Exam date and time: 10/09/2019 4:05 PM Age: 64 years old Clinical indication: Altered mental status/memory loss; Other: Not specified; Additional info: AMS TECHNIQUE: Imaging protocol: Computed tomography of the head without contrast. Total DLP: 760.49 mGy-cm Radiation optimization: All CT scans at this facility use at least one of these dose optimization techniques: automated exposure control; mA and/or kV adjustment per patient size (includes targeted exams where dose is matched to clinical indication); or iterative reconstruction. COMPARISON: No relevant prior studies available. FINDINGS: Brain: No acute intracranial hemorrhage, cerebral edema, or midline shift. Ventricles: There is no hydrocephalus. An incidental 7 mm colloid cyst is noted within the 3rd ventricle. Bones/joints: No acute fracture. Sinuses: No acute sinusitis. Mastoid air cells: Visualized mastoid air cells are well aerated. Soft tissues: Unremarkable. CT/CT head wo con* [id number] IMPRESSION: No acute intracranial abnormality. Radiation Dose CTDIVOL = (mGy): DLP = 760.49 (mGy-cm)
[2019-10-09] MEDS: sodium chloride 0.9% 500 ML IV (15:40)
[2019-10-09 15:57] LABS: ABG PH Result 7.48 (7.35-7.45); Alveolar-Arterial Oxygen Gradi 135.9 mmHg (5-10); Arterial Blood Gas Hematocrit 52.6 % (37-47); Base Excess ABG 9.3 mmol/L (-2.0-2.0); Blood Gas Allen Test Pos; Blood Gas Sample Site Brachial, left; Blood Gas Sample Type Arterial; Carboxyhemoglobin 1.5 %THgb (0.4-20.1); HCO3 ABG 34.4 mmol/L (22-26); Ionized Calcium Level - ABG 1.2 mmol/L (1.1-1.4); Methemoglobin 0.4 % (0.4-1.5); Oxygen Device NC; Oxygen Saturation ABG 92.8; Potassium Level - ABG 3.4 mmol/L (3.5-5.0); Total Hemoglobin 17.1 g/dL (12-16)
[2019-10-09 16:05] LABS: Basophils % 0.1 %; Eosinophils % 0.1 %; Hematocrit 51.2 % (37.0-47.0); Hemoglobin 17.1 g/dL (11.5-15.3); Lymphocytes % 9.1 %; Mean Corpuscular HGB Conc 33.4 g/dL (30.0-36.0); Mean Corpuscular Hemoglobin 34.3 pg (28.0-34.0); Mean Corpuscular Volume 102.8 fL (81-99); Mean Platelet Volume 11.2 fL (7.4-10.4); Monocytes # 0.4 10^3/uL (0.2-0.9); Monocytes % 3.6 %; Neutrophils # 9.3 10^3/uL (1.8-7.7); Neutrophils % 86.7 %; Nucleated Red Blood Cells % 0 %; Platelet Count 150 10^3/cmm (130-400); Red Blood Count 4.98 10^6/uL (4.1-5.3); Red Cell Distribution Width 16.4 % (12.1-15.1); White Blood Count 10.8 10^3/uL (4.0-10.0)
[2019-10-09] MEDS: ipratropium-albuterol 3 mL Neb INHALATION (16:08)
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
[2019-10-09 16:26] LABS: Acetaminophen < 5.0 ug/mL (10-30); Alanine Aminotransferase 23 U/L (0-33); Albumin Level 3.4 g/dL (3.5-5.2); Alcohol Level < 10 mg/dL (0-10); Alkaline Phosphatase 69 IU/L (35-105); Anion Gap 20.5 (5-19); Aspartate Amino Transferase 32 U/L (0-32); Blood Urea Nitrogen 21 mg/dL (8-23); Calcium 9.7 mg/Dl (8.8-10.2); Carbon Dioxide 32 mmol/L (22-29); Chloride 93 mmol/L (98-107); Globulin 3.3 g/dL (1.3-4.6); Glomerular Filtration Rate 72.7 mL/min (90-130); Glucose 110 mg/dL (74-106); Lipase 3 U/L (13-60); Potassium 3.5 mmol/L (3.5-5.1); Salicylate < 0.3 mg/dL (3-10); Sodium 142 mmol/L (136-145); Total Bilirubin 0.7 mg/dL (0.15-1.2); Total Protein 6.7 g/dL (6.6-8.7)
[2019-10-09 16:32] LABS: Ketone (Acetest) Serum Negative (Negative)
[2019-10-09 16:53] LABS: Lactate (Lactic Acid level) 1.1 mmol/L (0.5-2.2)
--- NOTE | 2019-10-09 16:57 | PC.PHAR ---
pt and pts son unsure of all the medications the pt takes. pts son states they were here wednesday and we should have all of her medications
--- NOTE | 2019-10-09 17:05 | PC.NURSE ---
At bedside to perform catheter for urine collection. of patient states he is not comfortable with a male performing a straight-cath on his . The charge nurse (female) will perform the procedure once finished with her current task.
--- NOTE | 2019-10-09 17:49 | PC.NURSE ---
Pox 81%. To room and found NC laying on chest. The pateint's is seated directly next to the pateint. He will encourage her to keep the oxygen on. POX now 95%
[2019-10-09 17:52] LABS: Amphetamines Screen Urine Negative (Negative); Barbiturates Screen Urine Negative (Negative); Benzodiazepines Screen Urine Positive (Negative); Cocaine Screen Urine Negative (Negative); Opiate Screen Urine Negative (Negative); PCP Screen Urine Negative (Negative); THC Screen Urine Negative (Negative)
[2019-10-09 17:55] LABS: Add Urine Microscopic? YES; Bilirubin Urine Neg (NEGATIVE); Blood Urine Neg (Negative); Glucose Urine UA Norm (Normal); Ketones Urine 2+ (Negative); Leukocyte Esterase Urine Negative (Negative); Nitrate Urine Negative (Negative); Protein Urine Neg (Negative); Specific Gravity, Urine 1.015 (1.005-1.030); Sulfosalicylic Acid Urine Negative; Urine Appearance Hazy (CLEAR); Urine Color Dark Yellow (Yellow); Urobilinogen Urine 1 mg/dL (Negative); pH Urine 9 (5-7)
[2019-10-09 18:03] LABS: Add Urine Culture? No; Amorphous Sediment Urine 2+; Bacteria Urine TRACE; Squamous Epithelial Cell Urine 0-4 (0-5); WBC Urine 0-4 /hpf (0-5)
--- NOTE | 2019-10-09 18:18 | ECG_ITS ---
Measurements Intervals Transfer Rate: 83 P: 70 CT: 122 QRS: 33 QRSD: 85 T: -32 QT: 307 QTc: 361 SINUS RHYTHM POSSIBLE LEFT ATRIAL ENLARGEMENT [-0.1mV P WAVE IN V1/V2] LOW QRS VOLTAGE IN PRECORDIAL LEADS [QRS DEFLECTION < 1.0 mV IN CHEST LEADS] NONSPECIFIC ST & T-WAVE ABNORMALITY Compared to ECG 10/07/2019 22:56:09 T-wave abnormality now present Short CT interval no longer present Indeterminate axis no longer present Myocardial infarct finding no longer present Electronically Signed On 10-10-2019 21:55:34 SALES COMMISSIONS ANALYST by Celi Munson M.D. [email or web address]
[2019-10-09] MEDS: sodium chloride 0.9% 1,000 ML 999 ML IV (18:31)
[2019-10-09 18:56] LABS: D Dimer 6.91 ug/mIFEU (0-0.59)
--- NOTE | 2019-10-09 20:18 | ECG_ITS ---
Measurements Intervals [place] Rate: 70 P: 68 GA: 126 QRS: 1 QRSD: 87 T: -27 QT: 396 QTc: 428 SINUS RHYTHM POSSIBLE LEFT ATRIAL ENLARGEMENT [-0.1mV P WAVE IN V1/V2] ST DEVIATION AND MODERATE T-WAVE ABNORMALITY, CONSIDER ANTERIOR ISCHEMIA [-0.1+ mV T WAVE IN V3/V4] Compared to ECG 10/07/2019 22:56:09 T-wave abnormality now present Possible ischemia now present Short GA interval no longer present Indeterminate axis no longer present Myocardial infarct finding no longer present Electronically Signed On 10-10-2019 22:07:16 ROLL FINISHER by Celi Munson M.D. [email or web address]
[2019-10-09 20:32] LABS: Troponin(5th) Baseline 26 ng/mL (0-10)
--- NOTE | 2019-10-09 20:39 | CTR_ITS ---
PROCEDURE INFORMATION: Exam: CT Angiography Chest With Contrast Exam date and time: 10/09/2019 9:44 PM Age: 64 years old Clinical indication: Other: Hypoxia; Additional info: Hypoxia and high d dimer TECHNIQUE: Imaging protocol: Computed tomographic angiography of the chest with intravenous contrast. 3D rendering: MIP and/or 3D reconstructed images were created by the technologist. Total DLP: 634.11 mGy-cm Radiation optimization: All CT scans at this facility use at least one of these dose optimization techniques: automated exposure control; mA and/or kV adjustment per patient size (includes targeted exams where dose is matched to clinical indication); or iterative reconstruction. Contrast material: OMNIPAQUE 350; Contrast volume: 95 ml; Contrast route: IV; COMPARISON: CT Chest w IV contrast* [id number] 12/30/2018 10:39 AM FINDINGS: Pulmonary arteries: Pulmonary embolic filling defect in pulmonary artery to lingula as far central as proximal 2nd order artery. Aorta: Aortic calcifications. Lungs: New areas of airspace disease in lingula representing infiltrate and/or atelectasis in lingula. Nodule with irregular margins anterior apical segment left upper lobe estimated at 1.4 cm x 0.8 cm by 0.7 cm mildly more prominent. Motion degradation partially obscures right middle lobe nodule but no gross change. Pleural space: Unremarkable. No pneumothorax. No pleural effusion. Heart: Mild coronary calcifications. Lymph nodes: Unremarkable. No enlarged lymph nodes. Bones/joints: Unremarkable. No acute fracture. Soft tissues: Lumbar surgical changes are noted. CT/CT angio chest PE protcl [id number] IMPRESSION: Pulmonary embolus involving lingular pulmonary artery. Mild increase in irregular nodule anterior left lung apex; consider biopsy or PET-CT. Radiation Dose CTDIVOL = (mGy): DLP = 634.11 (mGy-cm)
[2019-10-09 21:41] LABS: Glucose Point of Care 133 mg/dL (70-110)
[2019-10-09] MEDS: iodixanol 320 mg/mL 100mL Btl IV (22:27)
[2019-10-09 22:33] LABS: Troponin 5 2HR 25.16 ng/mL (0-10)
[2019-10-09 22:36] LABS: Troponin 5 2HR Delta -0.84 ABS# (0-10)
[2019-10-09] MEDS: cefTRIAXone 1,000 MG in sodium chloride 0.9% (plus) 50 ML 100 MG IV (23:07)
[2019-10-09] MEDS: sodium chloride 0.9% 1,000 ML 150 ML IV (23:08)
[2019-10-10] VITALS (7 sets, daily range): BP systolic 136–148; BP diastolic 71–96; PULSE 65–93; RESP 16–22; TEMP 36.4–37.1; O2SAT 92–100
--- NOTE | 2019-10-10 00:28 | PM.HP ---
Providers/Chief Complaint Admitting Physician: Cam Mariee Primary Care Provider: Samantha Riggins APN Chief Complaint: AMS History of Present Illness Autumn Anne is a 64 year old female who carries diagnoses of oxygen dependent 2 L COPD at home, obstructive sleep apnea (not using CPAP at home), chronic back pain(uses oxycodone), hypothyroidism, hypertension, anxiety depression and GERD presented to emergency department with 2 to 3-day history of shortness of breath. Patient was brought in by her who is endorsing that she was seen in the emergency department 2 days ago for her shortness of breath she was given Z-Aden and Medrol for her shortness of breath. At home she has been more confused has not been taking her medication at all and is coughing a lot. She was confused at the time of arrival to ER when I saw her she was much more awake and alert patient was telling me that she did not experience any runny nose, runny eyes, fever, chills but she is suffering from night sweats, she is not sure but may be some weight loss, her appetite is poor, she has not noticed any fevers, sick contacts. She has been having more shortness of breath with dry cough, her excessive coughing is hurting her rib cage which is bothering her very much. Her cough is dry she is not able to bring any sputum but she thinks she is congested. She is leading a sedentary lifestyle not very active at home, she quit smoking about 1 week ago. At home she has been taking antidepressants, Klonopin, she had normal hemodynamics but she was hypoxic on 4 L nasal cannula 65 PaO2 on blood gas with respiratory alkalosis, EKG showed normal sinus rhythm, patient was experiencing excessive bouts of dry cough, polycythemia hemoglobin 17 on diagnostics, I ordered CTA chest because of her d-dimer which came back positive for lingular PE with irregular left apical nodule which is bigger as compared to her previous CT scan Review of Systems Const: Reports: chills, body aches, change in appetite, change in weight, fatigue, malaise, night sweats, diaphoresis and daytime sleepiness; Denies: fever Eyes: Denies: change in vision ENMT: Denies: throat pain Card: Denies: chest pain Resp: Reports: shortness of breath and non-productive cough; Denies: productive cough GI: Denies: abdominal pain, nausea or vomiting : Denies: flank pain Musc: Denies: neck pain Skin/Breast: Denies: rash Neuro: Denies: headache Psych: Denies: anxiety Endo: Denies: excessive urination Jenaro/Lymph: Reports: easy bruising, easy bleeding, petechiae and purpura All/Imm: Denies: hives Medications/Allergies Home Medications Medication Instructions Recorded Confirmed Last Taken Type aspirin [Aspir-81] 81 mg PO DAILY 10/09/19 10/09/19 Unknown History diclofenac sodium 4 g TOPICAL DAILY PRN 10/09/19 10/09/19 Unknown History lidocaine [Lidoderm] See Rx Instructions .ROUTE .COMPLEX 10/09/19 10/09/19 Unknown History Allergies Allergy/AdvReac Type Severity Reaction Status Date / Time NSAIDS (Non-Steroidal Allergy ADR/ALGY-Fl Verified 09/28/19 11:15 Anti-Inflamma ushing PFSH Acute PFSH: Statuses (acute, chronic, etc) shown below reflect problem list status as previously entered and may not be historically accurate Medical History Anxiety (Acute) Bilateral carotid artery stenosis (Acute) Carotid artery stenosis (Acute) Cervical post-laminectomy syndrome (Acute) COPD (chronic obstructive pulmonary disease) (Acute) Hyperlipidemia, unspecified (Acute) Left peroneal mononeuropathy (Acute) Low back pain (Acute) Lung nodule (Acute) PAD (peripheral artery disease) (Acute) Pseudarthrosis after fusion or arthrodesis (Acute) Sleep apnea (Acute) Spondylolisthesis, lumbar region (Acute) Surgical History H/O eye surgery (Acute) History of appendectomy (Acute) History of back surgery (Acute) History of bladder surgery (Acute) History of cholecystectomy (Acute) History of hysterectomy (Acute) History of lumbar fusion (Acute) History of lumbar surgery (Acute) Social History Smoking and tobacco status: current every day smoker cigarettes Packs smoked per day: 1.5 Years cigarettes smoked: 40 Alcohol intake: never Lives independently: Yes Household members: spouse Marital status: Current occupational status: retired and disabled History of recent travel: No Current gender identity: Female Vitals/I&O/Wt Last Vital Signs Temp 97.9 F 10/09/19 19:40 Pulse 75 10/09/19 23:38 Resp 16 10/09/19 23:38 BP 151/68 10/09/19 19:40 Pulse Ox 97 10/09/19 23:38 Weight last 48 hrs Weight 56.245 kg Physical Exam Narrative: EXAM NARRATIVE: Patient is able to tell me place, date and time She is not confused She is alert able to follow all my verbal commands S1, S2, no active murmur, signs of heart failure negative Lungs bilateral rhonchi without adventitious sounds or wheezing, she has dry cough, Abdomen soft nontender nondistended bowel sounds present Nonfocal neurological exam Skin has multiple bruises and petechia over her arm EOMI, PERRLA Appropriate mood and affect Moist mucous membranes Lower extremity edema negative No signs of ischemia gangrene or ulcers on her extremities Data : 10/09/19 15:54 10/09/19 15:54 Micro: Microbiology 10/09/19 16:21 Blood Culture - Preliminary Blood SPECIMEN COLLECTED 10/09/19 15:54 Blood Culture - Preliminary Blood SPECIMEN COLLECTED A&P Assessment and plan (1) Pulmonary embolism: Status: Acute Code(s): I26.99 - Other pulmonary embolism without acute cor pulmonale (2) Pulmonary nodule: Status: Acute Code(s): R91.1 - Solitary pulmonary nodule (3) COPD exacerbation: Status: Acute Code(s): J44.1 - Chronic obstructive pulmonary disease with (acute) exacerbation (4) Hypoxia: Status: Acute Code(s): R09.02 - Hypoxemia (5) DNR (do not resuscitate): Status: Acute Code(s): Z66 - Do not resuscitate Additional A&P Information Acute pulmonary embolism This would be classified as symptomatic PE, I will check BNP, echo and venous Doppler, CTA chest positive for lingular pulmonary embolism Normal hemodynamics, troponin not significantly high I would start her on loading dose of Eliquis, creatinine function is normal Pulmonary nodule increasing in dimension irregular in nature She will need PET scan or outpatient pulmonology consult for a biopsy of this nodule She has constitutional symptoms such as weight loss, night sweats fatigue She has risk factors for lung malignancy such as smoking, she is saying that she recently quit about 1 week ago COPD exacerbation with hypoxic respiratory failure Currently requiring 4 to 5 L of oxygen Most likely secondary to acute PE Abnormal urinalysis with burning on voiding We will treat her for UTI with ceftriaxone She has symptoms such as burning without frequency or hesitancy Excessive bouts of cough with bronchitis With use doxycycline with Mucinex and DuoNeb treatment No active signs of pneumonia on CT chest DVT prophylaxis: Not needed he is on Eliquis loading dose GI prophylaxis: Not needed Patient is DNR/DNI Patient and her both in agreement for goals of care Attestations Medical Necessity Statement*: Anticipating her stay to cross more than 2 midnights because of acute PD and hypoxic respiratory failure Time Spent in Patient Care: (>than 50% of time spent in counselling and/or direct pt care on unit). 45 Coding Level of Care Code Acute [employer] Maker Hand for g Fwd Diagnoses Pulmonary embolism I26.99 Pulmonary nodule R91.1 COPD exacerbation J44.1 Hypoxia R09.02 DNR (do not resuscitate) Z66
[2019-10-10 00:56] LABS: NT Pro B Type Natriuretic Pept 1471 pg/mL (0-125)
[2019-10-10 01:54] LABS: Basophils % 0.1 %; Hemoglobin 14.4 g/dL (11.5-15.3); Lymphocytes # 0.6 10^3/uL (0.8-4.8); Lymphocytes % 7.6 %; Mean Corpuscular HGB Conc 32.7 g/dL (30.0-36.0); Mean Corpuscular Volume 100.9 fL (81-99); Mean Platelet Volume 11.1 fL (7.4-10.4); Monocytes # 0.1 10^3/uL (0.2-0.9); Monocytes % 1.1 %; Neutrophils # 7.5 10^3/uL (1.8-7.7); Neutrophils % 90.8 %; Nucleated Red Blood Cells % 0 %; Platelet Count 117 10^3/cmm (130-400); Red Blood Count 4.36 10^6/uL (4.1-5.3); Red Cell Distribution Width 15.9 % (12.1-15.1); White Blood Count 8.2 10^3/uL (4.0-10.0)
[2019-10-10 02:09] LABS: Anion Gap 18.6 (5-19); Blood Urea Nitrogen 19 mg/dL (8-23); Calcium 8.2 mg/Dl (8.8-10.2); Carbon Dioxide 27 mmol/L (22-29); Chloride 102 mmol/L (98-107); Glomerular Filtration Rate 101.3 mL/min (90-130); Glucose 153 mg/dL (74-106); Potassium 3.6 mmol/L (3.5-5.1); Sodium 144 mmol/L (136-145)
[2019-10-10 02:11] LABS: Troponin 5 6HR 26.59 ng/L (0-10); Troponin 5 6HR Delta 0.59 ng/L (0-12)
[2019-10-10 06:45] LABS: Glucose Point of Care 152 mg/dL (70-110)
[2019-10-10] MEDS: sodium chloride 0.9% 1,000 ML 150 ML IV ×2 (06:50→18:03)
[2019-10-10] MEDS: pantoprazole DR 40 mg Tablet PO (09:32)
[2019-10-10] MEDS: doxycycline 100 mg Tablet PO ×2 (09:32→18:06)
[2019-10-10] MEDS: montelukast sodium 10 mg Tablet PO (09:32)
[2019-10-10] MEDS: guaiFENesin 600 mg Tablet PO ×2 (09:32→18:06)
[2019-10-10] MEDS: aspirin 81 mg EC Tablet PO (09:32)
[2019-10-10] MEDS: apixaban 5 mg Tablet 10 MG PO ×2 (09:32→18:06)
[2019-10-10 11:43] LABS: Glucose Point of Care 95 mg/dL (70-110)
--- NOTE | 2019-10-10 12:22 | PC.CHAP ---
Pastoral Care Encounter/Spiritual Assessment Type of Contact [] Declined poultry vaccinator visit [] Patient/Family/Request visit [] Outpatient visit [] Follow-up visit [] Physician referral [] Code/Alert [] Routine visit [] Staff referral [] Actively dying [] Patient sleeping [] Family support [] [] Out of room [] Palliative care [] [] Receiving care in room [] Pre-surgical visit [] Trauma [] Long length of stay [] ICU visit [] Other: Relational/Emotional Strength [] Patient feels connected with others/family/visitors/staff [] Distress [] Loneliness/isolation [] Abandonment Spirituality of Patient [] Person of Vijaya [] Attends Rastafari of their Vijaya [] Believes in Prayer [] Reads Bible or Caodaism materials [] There are Spiritual issues to be addressed Site Head Interventions [x] Prayer [x] Active listening [x] Non-anxious presence [x] Spiritual/emotional support [] Crisis/trauma care [] Spiritual counseling [] Bereavement support [] Provided bereavement packet [] Provided Bible/devotional materials [] Provided toy/stuffed animal, coloring book to patient or family member [x] Completed spiritual assessment [] Provided Communion [] Anointing/Strunk [] Salvation [] Other: Impact on Illness or Injury [] Angry [] Fearful [] Anxious [] Often cries [] Exhaustion [] Unable to work [] Unable to attend baptist [] Unable to walk/stand [] Unable to read [] Unable to drive [] Unable to eat/drink [] Unable to sleep [] Unable to be with family [] Other: Summary patient had one visitor and felling good about her stay in hospital Time spent with patient 10 min
[2019-10-10 16:40] LABS: Glucose Point of Care 96 mg/dL (70-110)
--- NOTE | 2019-10-10 19:00 | PC.NURSE ---
Introduction of staff and report received, aidet.
--- NOTE | 2019-10-10 21:09 | P.PN_ITS ---
Subjective Subjective: Interval history: She is not very cooperative this morning. When asked where she is states hospital, but when asked about the year he gets busy peeling off various pieces of tape off of her arm and belly and sticking them to the bedrail. Does not answer further questions, but jumps and occasionally during the conversation with her correcting some answers. In those moments seems appropriate, otherwise goes back to fidgeting with various things around her. Vitals/I&O/Wt Last Vital Signs Temp 98.0 F 10/10/19 19:00 Pulse 81 10/10/19 19:00 Resp 18 10/10/19 19:00 BP 148/96 10/10/19 19:00 Pulse Ox 100 10/10/19 19:00 10/10/19 10/10/19 10/10/19 06:59 14:59 22:59 Intake Total 1120 / 1220 1000 / 1000 Balance 1120 / 1220 1000 / 1000 Weight last 48 hrs Weight 56.245 kg Physical Exam Const: COMMON NORMALS: no apparent distress and alert OTHER: Giving some appropriate answers, otherwise busy playing with her surroundings, losing atten tion very quickly. HENMT: COMMON NORMALS: oropharynx normal Neck/C-Spine: COMMON NORMALS: no meningeal signs and no JVD Resp: COMMON NORMALS: normal respiratory effort and clear to auscultation bilaterally AUSCULTATION: clear to auscultation bilaterally Cardio: COMMON NORMALS: no JVD, regular rhythm, S1 normal heart sound, S2 normal heart sound and no murmurs RHYTHM: regular rhythm HEART SOUNDS: S1 normal and S2 normal GI: COMMON NORMALS: normal to inspection, nondistended, normoactive bowel sounds, soft to palpation and non-tender PALPATION: Yes soft Extremity: COMMON NORMALS: no joint enlargement and no pedal edema Neuro: COMMON NORMALS: moves all extremities SENSORIUM/ORIENTATION: Yes alert MENINGEAL SIGNS: Yes no meningeal signs MOTOR EXAM: No tremor Skin: COMMON NORMALS: no rashes or lesions noted GENERAL SKIN EXAM: no rashes or lesions noted Data : 10/10/19 01:46 10/10/19 01:46 Micro: Microbiology 10/09/19 16:21 Blood Culture - Preliminary Blood NEGATIVE TO DATE 10/09/19 15:54 Blood Culture - Preliminary Blood NEGATIVE TO DATE A&P Assessment and plan (1) Acute encephalopathy: Over the last several days, starting sometime before the weekend, reports was present during ER visit on Wednesday, however, got even worse on Wednesday. He reports she was on a slow prednisone taper which she is finished just a few days earlier. Otherwise reports she has taken some of her usual medications in the last several days. He says that she frequents a pain clinic who manages her Valium, Flexeril, gabapentin, hydrocodone. He states that they were going to tr y to taper her off gabapentin and hydrocodone, although this was not done yet. She herself denies any headache, denies photosensitivity, any neck or back tenderness. She knows where she is, but does not answer about what year it might be. She follows a few commands, but loses attention very quickly, and becomes engrossed in her surroundings. Acute encephalopathy with delirium of unknown cause. With hypotension on presentation, may suspect possibly adrenal insufficiency secondary to chronic st eroid, although steroid induced delirium is another possibility as she was on steroid up until just recently, although with a taper. Withdrawal from some of her chronic pain medications is also a possibility, although her states she was starting to get confused even at that time while she was still taking them regularly. Currently she requires a one-to-one sitter due to continuously trying to take off her oxygen. Trying to climb out of bed. states that her mental status is better while she is on oxygen. denies alcohol intake or drug use. At this time will restart lower doses of her pain medications. Continue albuterol, Rocephin for COPD exacerbation. Continue treatment for PE. Status: Acute Code(s): G93.40 - Encephalopathy, unspecified (2) Pulmonary embolism: Continue Eliquis Status: Acute Code(s): I26.99 - Other pulmonary embolism without acute cor pulmonale (3) Pulmonary nodule: Progressive by imaging. Once she is out of acute episode may benefit from additional assessment by biopsy versus PET scan. Has been a smoker, reportedly quit smoking about a week ago. Status: Acute Code(s): R91.1 - Solitary pulmonary nodule (4) COPD exacerbation: With acute exacerbation. Continue Rocephin, albuterol. DC doxycycline. Prednisone has been held due to mental status changes. Status: Acute Code(s): J44.1 - Chronic obstructive pulmonary disease with (acute) exacerbation (5) Hypoxia: Multifactorial secondary to PE, COPD. Continue treatment of underlying conditions. Status: Acute Code(s): R09.02 - Hypoxemia (6) DNR (do not resuscitate): Status: Acute Code(s): Z66 - Do not resuscitate Attestations Medical Necessity Statement*: Continue admission for assessment management of acute encephalopathy. Coding Level of Care Code Acute Research Psychologist for [facility] Diagnoses Acute encephalopathy G93.40 Pulmonary embolism I26.99 Pulmonary nodule R91.1 COPD exacerbation J44.1 Hypoxia R09.02 DNR (do not resuscitate) Z66
[2019-10-10 21:24] LABS: Glucose Point of Care 98 mg/dL (70-110)
[2019-10-10] MEDS: cefTRIAXone 1,000 MG in sodium chloride 0.9% (plus) 50 ML 100 MG IV (21:39)
[2019-10-10] MEDS: ondansetron 2 mg/ML SDV 2 mL 4 MG IVP (21:40)
--- NOTE | 2019-10-10 23:52 | USCV_ITS ---
Autumn Anne Age: 64 Gender: F : 1955 Exam Date: 10/10/2019 08:40 Ordering Phys: Júnior Esparza MD Technologist: Aleshia Maxwell Exam Location: [facility] [place] Indication: pe HISTORY: Lower extremity swelling. PROCEDURES: Venous duplex imaging was performed in bilateral lower extremities. The following venous structures were evaluated: common femoral vein, profunda vein, proximal portion of the greater saphenous vein, superficial femoral vein, and the popliteal vein. In addition, the posterior tibial and peroneal trunk were evaluated. Serial compression, augmentation maneuvers, and spectral Doppler flow evaluation were performed. FINDINGS: Normal 2-D Doppler and augmentation and compressibility throughout the lower extremity venous structures. Additional imaging through the proximal calf veins also reveals no thrombus. Limited evaluation of the greater saphenous vein is patent with no thrombus.. CONCLUSIONS No evidence of right lower extremity DVT. No evidence of left lower extremity DVT. Anthony Barrios MD (Electronically Signed) Final Date: 10 October 2019 16:17 S
--- NOTE | 2019-10-10 23:52 | USCV_ITS ---
Omid Autumn Age: 64 Gender: F : 1955 Exam Date: 10/10/2019 06:23 Ordering Phys: Júnior Esparza MD Technologist: Mary Georges Exam Location: [facility] [place] Indication: PE BP: / HR: 61 Rhythm: Sinus Technical Quality: Adequate MEASUREMENTS (Male / Female) Normal Values 2D ECHO LV Diastolic Diameter PLAX 4.5 cm 4.2 - 5.9 / 3.9 - 5.3 cm LV Systolic Diameter PLAX 3.6 cm IVS Diastolic Thickness 0.8 cm 0.6 - 1.0 / 0.6 - 0.9 cm IVS Systolic Thickness 0.9 cm LVPW Diastolic Thickness 0.8 cm 0.6 - 1.0 / 0.6 - 0.9 cm LVPW Systolic Thickness 1.3 cm LVOT Diameter 2.0 cm LV Ejection Fraction 2D Teich 38.5 % LV Ejection Fraction MOD 2C 70.0 % LV Ejection Fraction 2C AL 71.6 % LA Diameter 3.4 cm LA Width 3.9 cm LA Height 5.0 cm RA Width 2.9 cm RA Height 4.3 cm M-MODE LV Diastolic Diameter MM 5.0 cm 4.2 - 5.9 / 3.9 - 5.3 cm LV Systolic Diameter MM 3.6 cm LV Ejection Fraction MM Teich 53.8 % IVS Diastolic Thickness MM 1.0 cm 0.6 - 1.0 / 0.6 - 0.9 cm IVS Systolic Thickness MM 0.8 cm LVPW Diastolic Thickness MM 0.8 cm 0.6 - 1.0 / 0.6 - 0.9 cm LVPW Systolic Thickness MM 1.4 cm Aortic Annulus Diameter 3.1 cm LA Ao Ratio MM 1.1 MV E Point Septal Separation 1.1 cm DOPPLER AV Peak Velocity 88.0 cm/s LVOT Peak Velocity 89.0 cm/s AV Area Cont Eq vti 3.5 cm squared AV Area Cont Eq pk 3.2 cm squared MV Peak Velocity 98.0 cm/s MV Area PHT 5.0 cm squared Mitral E to A Ratio 1.2 MV E' Velocity 7.0 cm/s Mitral E to MV E' Ratio 13.1 Mitral E to LV E' Lateral Ratio 12.4 Mitral E to LV E' Septal Ratio 14.1 TR Peak Velocity 283.0 cm/s TR Peak Gradient 32.1 mmHg Right Atrial Pressure 3.0 mmHg Pulmonary Artery Systolic Pressu 35.0 mmHg PV Peak Velocity 71.0 cm/s RV Acceleration Time 0.1 s FINDINGS Left Ventricle Normal LV size with a slightly diminished ejection fraction of 50%. Technically difficult study because of the poor ultrasonic window Right Ventricle Dilated right ventricle with diminished ejection fraction Right Atrium Mildly increased right atrial size. Left Atrium Mildly increased left atrial size. Mitral Valve Thickened mitral valve. Aortic Valve Thickened aortic valve. Tricuspid Valve Mild tricuspid valve regurgitation. Thickened tricuspid valve. Pulmonic Valve Could not be visualized well Pericardium No pericardial effusion. Aorta Normal aortic annulus size. CONCLUSIONS Normal LV size with a slightly diminished ejection fraction of 50%. Mild biatrial enlargement Mildly dilated right ventricle with diminished ejection fraction. Aortic and mitral valves.Mild tricuspid valve regurgitation. Thickened tricuspid valve. Technically difficult study because of the poor ultrasonic window Estimated pulmonary artery peak systolic pressure 35 mmHg. This could be an underestimation because of poor Doppler signals No previous study is available for comparison. Dr Celi Munson MD [facility] (Electronically Signed) Final Date: 11 October 2019 00:37 S
[2019-10-11] VITALS (20 sets, daily range): BP systolic 125–143; BP diastolic 74–89; PULSE 72–122; RESP 18–28; TEMP 36.4–37.2; O2SAT 90–98
[2019-10-11] MEDS: ipratropium-albuterol 3 mL Neb INHALATION ×6 (00:26→21:38)
[2019-10-11] MEDS: diazePAM 2 mg Tablet PO ×3 (00:39→22:40)
[2019-10-11] MEDS: calcium carbonate 500 mg Chew Tablet 1000 MG PO (00:42)
[2019-10-11] MEDS: sodium chloride 0.9% 1,000 ML 150 ML IV ×3 (00:44→14:37)
[2019-10-11 06:59] LABS: Glucose Point of Care 109 mg/dL (70-110)
[2019-10-11 07:03] LABS: Basophils % 0.1 %; Hematocrit 45.8 % (37.0-47.0); Hemoglobin 14.9 g/dL (11.5-15.3); Lymphocytes # 1.1 10^3/uL (0.8-4.8); Lymphocytes % 9.8 %; Mean Corpuscular HGB Conc 32.5 g/dL (30.0-36.0); Mean Corpuscular Hemoglobin 32.7 pg (28.0-34.0); Mean Corpuscular Volume 100.4 fL (81-99); Mean Platelet Volume 10.6 fL (7.4-10.4); Monocytes # 0.6 10^3/uL (0.2-0.9); Monocytes % 5.3 %; Neutrophils # 9.6 10^3/uL (1.8-7.7); Neutrophils % 84.4 %; Nucleated Red Blood Cells % 0 %; Platelet Count 149 10^3/cmm (130-400); Red Blood Count 4.56 10^6/uL (4.1-5.3); Red Cell Distribution Width 16.3 % (12.1-15.1); White Blood Count 11.4 10^3/uL (4.0-10.0)
[2019-10-11 07:04] LABS: Alanine Aminotransferase 31 U/L (0-33); Albumin Level 3.2 g/dL (3.5-5.2); Alkaline Phosphatase 59 IU/L (35-105); Anion Gap 16.9 (5-19); Aspartate Amino Transferase 45 U/L (0-32); Blood Urea Nitrogen 17 mg/dL (8-23); Calcium 8.2 mg/Dl (8.8-10.2); Carbon Dioxide 27 mmol/L (22-29); Chloride 102 mmol/L (98-107); Globulin 2.9 g/dL (1.3-4.6); Glucose 119 mg/dL (74-106); Potassium 2.9 mmol/L (3.5-5.1); Sodium 143 mmol/L (136-145); Total Bilirubin 0.5 mg/dL (0.15-1.2); Total Protein 6.1 g/dL (6.6-8.7)
--- NOTE | 2019-10-11 08:09 | P.PN_ITS ---
Subjective Subjective: Interval history: Seen and examined at ~4pm this afternoon at which time noted to be extremely dyspneic, tachypneic, using accessory muscles, sitting in tripod position,unable to talk inf ull sentences .Stat ABG showed ph 7.1, Pc02 72. Resp exam with poor air entry B/L. Started on Bipap and methylprednisone with improvement ~1 hour later. Repeat gas showed improved hypercapnea and improving pH. Medications: Reviewed: Yes Vitals/I&O/Wt Last Vital Signs Temp 97.8 F 10/11/19 07:00 Pulse 109 H 10/11/19 07:57 Resp 20 H 10/11/19 07:57 BP 136/89 10/11/19 07:00 Pulse Ox 94 10/11/19 07:57 10/10/19 10/11/19 10/11/19 22:59 06:59 14:59 Intake Total 590 / 1590 410 / 2000 1000 / 1000 Output Total 100 / 100 Balance 590 / 1590 310 / 1900 1000 / 1000 Weight last 48 hrs Weight 56.245 kg Physical Exam Narrative: EXAM NARRATIVE: GEN: Awake, alert, respiratory distress ++, using accessory muscles, tripod positioning , impending respiratory fatigue CVS: S1S2 N RS: Poor B/L air entry with audible wheezing Abd: Soft, nt/nd , bs+ BEVEL GEAR GENERATOR OPERATOR: no focal neuro deficits Data : 10/11/19 06:41 10/11/19 06:41 Micro: Microbiology 10/09/19 16:21 Blood Culture - Preliminary Blood NEGATIVE TO DATE 10/09/19 15:54 Blood Culture - Preliminary Blood NEGATIVE TO DATE A&P Assessment and plan (1) Acute encephalopathy: Unable to assess at this time as patient extremely dyspneic, unable to talk or reply to questions in complete sentences. Per at bedside, mental status appears to be improved this morning. Acute encephalopathy with delirium of unknown cause. With hypotension on presentation, may suspect possibly adrenal insufficiency secondary to chronic steroid, although steroid induced delirium is another possibility as she was on steroid up until just recently, although with a taper. Withdrawal from some of her chronic pain medications is also a possibility, although her states she was starting to get confused even at that time while she was still taking them regularly. COPD with acute exacerbation: Stat ABG Start Bipap given respiratory distress Change albuterol to duonebs, start budesonide inhalation, start streoids methyl prednisone 60mg iv q6h. While steroid induced delirium is certainly a possibility, it is more beneficial to start steroids at this time given impending respiratory fatigue Continue treatment for PE. Status: Acute Code(s): G93.40 - Encephalopathy, unspecified (2) Pulmonary embolism: Continue Eliquis Status: Acute Code(s): I26.99 - Other pulmonary embolism without acute cor pulmonale (3) Pulmonary nodule: Progressive by imaging. Once she is out of acute episode may benefit from additional assessment by biopsy versus PET scan. Has been a smoker, reportedly quit smoking about a week ago. Status: Acute Code(s): R91.1 - Solitary pulmonary nodule (4) COPD exacerbation: With acute exacerbation. Continue Rocephin, albuterol. DC doxycycline. Status: Acute Code(s): J44.1 - Chronic obstructive pulmonary disease with (acute) exacerbation (5) Hypoxia: Multifactorial secondary to PE, COPD. Continue treatment of underlying conditions. Status: Acute Code(s): R09.02 - Hypoxemia (6) DNR (do not resuscitate): Status: Acute Code(s): Z66 - Do not resuscitate Additional A&P Information DVT prophylaxis: Not needed he is on Eliquis loading dose GI prophylaxis: protonix 40mg po Patient is DNR/DNI Patient and her both in agreement for goals of care Attestations Medical Necessity Statement*: hypoxic hypercapneic respiratory failure, impending respiratory fatigue Coding Level of Care Code Acute Clinical Advisor for [facility] Fwd Diagnoses Acute encephalopathy G93.40 Pulmonary embolism I26.99 Pulmonary nodule R91.1 COPD exacerbation J44.1 Hypoxia R09.02 DNR (do not resuscitate) Z66
[2019-10-11] MEDS: potassium chloride premix 40 MEQ/100 ML PREMIX 25 MEQ IV (09:33)
[2019-10-11] MEDS: apixaban 5 mg Tablet 10 MG PO ×2 (10:45→18:32)
[2019-10-11] MEDS: pantoprazole DR 40 mg Tablet PO (10:45)
[2019-10-11] MEDS: aspirin 81 mg EC Tablet PO (10:46)
[2019-10-11] MEDS: gabapentin 100 mg Capsule PO ×3 (10:46→22:40)
[2019-10-11] MEDS: montelukast sodium 10 mg Tablet PO (10:46)
[2019-10-11] MEDS: guaiFENesin 600 mg Tablet PO ×2 (10:46→18:32)
--- NOTE | 2019-10-11 11:04 | PC.NURSE ---
Nursing Note This nurse on way to answer call light and 1:1 sitter at door stating the pt is having a hard time breathing. This nurse obtained a vital sign cart and assessed the pt's oxygen saturation. Pt's oxygen saturation at this time 84% on 3L oxygen via nasal canula. The nurse increased oxygen to 4L and stepped to door to find another RN. Arielle RN stepped into room and assessed pt, having pt take deep breaths in through her nose and out through her mouth and called the pt's primary nurse, Emily. Emily entered room and had pt continue with the deep breathing exercises and called respiratory to come and perform a breathing treatment for the pt. Emily stated to leave pulse ox on pt for now and would reassess after breathing treatment.
[2019-10-11 11:40] LABS: Glucose Point of Care 122 mg/dL (70-110)
[2019-10-11 15:35] LABS: ABG PCO2 73.5 mmHg (35-45); ABG PH Result 7.19 (7.35-7.45); Arterial Blood Gas Hematocrit 49.2 % (37-47); Base Excess ABG -2.6 mmol/L (-2.0-2.0); Blood Gas Allen Test Pos; Blood Gas Sample Site Radial, left; Blood Gas Sample Type Arterial; HCO3 ABG 27.9 mmol/L (22-26); Oxygen Device NC; PO2 ABG 79.2 mmHg (80.0-100.0)
--- NOTE | 2019-10-11 15:57 | PC.NURSE ---
This nurse in report was told she was pulling out iv's, pt has not been pulling at any tubes and has been very compliant and has been very helpful with pt and helping her relax.
[2019-10-11 16:55] LABS: Glucose Point of Care 134 mg/dL (70-110)
[2019-10-11 17:39] LABS: ABG PCO2 49.6 mmHg (35-45); ABG PH Result 7.29 (7.35-7.45); Alveolar-Arterial Oxygen Gradi 70.7 mmHg (5-10); Arterial Blood Gas Hematocrit 49.1 % (37-47); Base Excess ABG -3.4 mmol/L (-2.0-2.0); Blood Gas Allen Test Pos; Blood Gas Sample Site Radial, left; Blood Gas Sample Type Arterial; Carboxyhemoglobin 1.3 %THgb (0.4-20.1); HCO3 ABG 23.8 mmol/L (22-26); HGB O2 Sat 93.3 % (95-100); Ionized Calcium Level - ABG 1.1 mmol/L (1.1-1.4); Methemoglobin 0.9 % (0.4-1.5); Oxygen Device BIPAP; Oxygen Saturation ABG 95.4; PO2 ABG 81.2 mmHg (80.0-100.0); Potassium Level - ABG 4.4 mmol/L (3.5-5.0)
--- NOTE | 2019-10-11 19:00 | PC.NURSE ---
INTRODUCTION OF STAFF AND REPORT RECEIVED, AIDET.
[2019-10-11] MEDS: budesonide 0.5 mg/2 mL Neb INHALATION (21:38)
[2019-10-11 21:43] LABS: Glucose Point of Care 174 mg/dL (70-110)
[2019-10-11] MEDS: cefTRIAXone 1,000 MG in sodium chloride 0.9% (plus) 50 ML 100 MG IV (22:40)
[2019-10-12] VITALS (26 sets, daily range): BP systolic 101–129; BP diastolic 58–88; PULSE 92–125; RESP 16–40; TEMP 35.9–37.4; O2SAT 90–98
[2019-10-12] MEDS: ipratropium-albuterol 3 mL Neb INHALATION ×6 (01:20→20:03)
[2019-10-12] MEDS: cyclobenzaprine 10 mg Tablet 2.5 MG PO (03:49)
[2019-10-12] MEDS: diazePAM 2 mg Tablet PO ×2 (03:49→09:24)
[2019-10-12 05:59] LABS: Basophils % 0.1 %; Hematocrit 49.4 % (37.0-47.0); Hemoglobin 15.5 g/dL (11.5-15.3); Lymphocytes # 0.5 10^3/uL (0.8-4.8); Lymphocytes % 4.9 %; Mean Corpuscular HGB Conc 31.4 g/dL (30.0-36.0); Mean Corpuscular Hemoglobin 32.9 pg (28.0-34.0); Mean Corpuscular Volume 104.9 fL (81-99); Mean Platelet Volume 11.1 fL (7.4-10.4); Monocytes # 0.2 10^3/uL (0.2-0.9); Monocytes % 2.2 %; Neutrophils # 9.9 10^3/uL (1.8-7.7); Neutrophils % 92.3 %; Nucleated Red Blood Cells % 0 %; Platelet Count 186 10^3/cmm (130-400); Red Blood Count 4.71 10^6/uL (4.1-5.3); Red Cell Distribution Width 17.3 % (12.1-15.1); White Blood Count 10.7 10^3/uL (4.0-10.0)
[2019-10-12 06:23] LABS: Alanine Aminotransferase 36 U/L (0-33); Albumin Level 3.7 g/dL (3.5-5.2); Alkaline Phosphatase 67 IU/L (35-105); Anion Gap 14.6 (5-19); Aspartate Amino Transferase 35 U/L (0-32); Blood Urea Nitrogen 28 mg/dL (8-23); Calcium 8.5 mg/Dl (8.8-10.2); Carbon Dioxide 29 mmol/L (22-29); Chloride 107 mmol/L (98-107); Globulin 3.2 g/dL (1.3-4.6); Glomerular Filtration Rate 84.8 mL/min (90-130); Glucose 237 mg/dL (74-106); Potassium 4.6 mmol/L (3.5-5.1); Sodium 146 mmol/L (136-145); Total Bilirubin 0.6 mg/dL (0.15-1.2); Total Protein 6.9 g/dL (6.6-8.7)
[2019-10-12 06:58] LABS: Glucose Point of Care 199 mg/dL (70-110)
[2019-10-12] MEDS: budesonide 0.5 mg/2 mL Neb INHALATION ×2 (07:36→20:03)
[2019-10-12 08:20] LABS: ABG PH Result 7.23 (7.35-7.45); Arterial Blood Gas Hematocrit 49.3 % (37-47); Base Excess ABG -1.1 mmol/L (-2.0-2.0); Blood Gas Sample Site Radial, right; Blood Gas Sample Type Arterial; HCO3 ABG 28.5 mmol/L (22-26); Oxygen Device NC; PO2 ABG 87.1 mmHg (80.0-100.0)
[2019-10-12 08:21] LABS: ABG PCO2 67.8 mmHg (35-45)
[2019-10-12] MEDS: apixaban 5 mg Tablet 10 MG PO (09:21)
[2019-10-12] MEDS: gabapentin 100 mg Capsule PO ×2 (09:21→20:27)
[2019-10-12] MEDS: pantoprazole DR 40 mg Tablet PO (09:21)
[2019-10-12] MEDS: guaiFENesin 600 mg Tablet PO (09:21)
[2019-10-12] MEDS: montelukast sodium 10 mg Tablet PO (09:21)
[2019-10-12] MEDS: aspirin 81 mg EC Tablet PO (09:21)
--- NOTE | 2019-10-12 10:13 | PC.NURSE ---
ONE ON ONE SITTER PATIENT HAS A ONE ON ONE SITTER ORDER. WE CURRENTLY DO NOT HAVE ANY SITTERS AVAILABLE. DR. SAMUELS NOTIFIED. CALLED BUT STAYED ALL DAY AND NIGHT AND CANNOT COME TO SIT AT THIS TIME.
[2019-10-12 11:48] LABS: Glucose Point of Care 229 mg/dL (70-110)
[2019-10-12] MEDS: morphine 4 mg/mL SDV 1 mL 1 MG IVP ×5 (12:12→20:55)
[2019-10-12] MEDS: FUROsemide 10 mg/mL SDV 4mL 40 MG IVP (12:16)
[2019-10-12] MEDS: LORazepam 2 mg/mL INJ 1 mL 0.5 MG IVP ×2 (13:40→20:28)
--- NOTE | 2019-10-12 17:51 | PM.PN ---
Subjective Subjective: Interval history: Ms. garcia was seen earlieer this morning at 8 am and then again multiple times during the day. this morning, she was off bipap seince 4 am and at time of exam, was again noted to be significantly tachypneic and gasping. She only kept the bipap on intermittently. ABG showed hypercapnea. She was unable to speak in full sentences and kept repeating i dont know . Medications: Reviewed: Yes Vitals/I&O/Wt Last Vital Signs Temp 97.6 F 10/12/19 15:21 Pulse 122 H 10/12/19 16:20 Resp 22 H 10/12/19 16:11 BP 122/85 10/12/19 15:21 Pulse Ox 93 10/12/19 16:20 10/12/19 10/12/19 10/12/19 06:59 14:59 22:59 Intake Total 530 / 2590 Output Total 600 / 600 Balance -1989 Physical Exam Narrative: EXAM NARRATIVE: GEN: Awake, respiratory distress ++,tachypneic with RR 40, using accessory muscles, impending respiratory fatigue CVS: S1S2 N RS: Poor B/L air entry with audible wheezing Abd: Soft, nt/nd , bs+ RETAIL MARKETING SPECIALIST: no focal neuro deficits Data : 10/12/19 05:40 10/12/19 05:40 A&P Assessment and plan (1) Acute encephalopathy: Unable to assess at this time as patient extremely dyspneic, unable to talk or reply to questions in complete sentences. Acute encephalopathy with delirium of unknwon cause, likely to be multifactorial related to metabolic abornarmalities, hypoxia, hypercapnea, recent steroids. Delirium leading to patient being agitated, taking off Bipap. Will reorder bedside sitter to ensure compliance. This morning noted to be in resp distress again with air hunger. Prn morphine and ativan added. Discussed with that patient's condition continues to deteriorate in spite of maximal measures and potential complications inlude respiratory arrest and fatigue. he understands, wishes to honor 's wishes for DNR/DNI and wants to maximise comfort mesaures including use of morphine and benzos with the understanding that these may lead to repiratory depression. COPD with acute exacerbation: Continous Bipap Change albuterol to duonebs, continue budesonide inhalation, continue streoids methylprednisone 60mg iv q6h. While steroid induced delirium is certainly a possibility, it is more beneficial to start steroids at this time given impending respiratory fatigue Continue treatment for PE, but will switch eliquis to full dose lovenox to minimize oral medications as I am concerned patient will be too tired to swallow efficiently Lasix 40mg iv today for possible right heart failure contributing. Fluid discontinued yesterday Status: Acute Code(s): G93.40 - Encephalopathy, unspecified (2) Pulmonary embolism: Continue Eliquis Status: Acute Code(s): I26.99 - Other pulmonary embolism without acute cor pulmonale (3) Pulmonary nodule: Progressive by imaging. Once she is out of acute episode may benefit from additional assessment by biopsy versus PET scan. Has been a smoker, reportedly quit smoking about a week ago. Status: Acute Code(s): R91.1 - Solitary pulmonary nodule (4) COPD exacerbation: With acute exacerbation. Continue Rocephin, albuterol. DC doxycycline. Status: Acute Code(s): J44.1 - Chronic obstructive pulmonary disease with (acute) exacerbation (5) Hypoxia: Multifactorial secondary to PE, COPD. Continue treatment of underlying conditions. Status: Acute Code(s): R09.02 - Hypoxemia (6) DNR (do not resuscitate): Status: Acute Code(s): Z66 - Do not resuscitate Additional A&P Information DVT prophylaxis: Currently on full dose lovenox GI prophylaxis: protonix 40mg po Patient is DNR/DNI Patient and her both in agreement for goals of care Attestations Medical Necessity Statement*: deteriorating respiratory function Coding Level of Care Code Acute Tire Trucker for Chg Fwd Diagnoses Acute encephalopathy G93.40 Pulmonary embolism I26.99 Pulmonary nodule R91.1 COPD exacerbation J44.1 Hypoxia R09.02 DNR (do not resuscitate) Z66
[2019-10-12] MEDS: enoxaparin 60 mg/0.6 mL Syringe SUBCUT (20:27)
[2019-10-12] MEDS: cefTRIAXone 1,000 MG in sodium chloride 0.9% (plus) 50 ML 100 MG IV (20:29)
[2019-10-13] VITALS (20 sets, daily range): BP systolic 111–120; BP diastolic 78–88; PULSE 91–128; RESP 16–26; TEMP 36.5–37.2; O2SAT 74–96
[2019-10-13] MEDS: ipratropium-albuterol 3 mL Neb INHALATION ×5 (00:30→16:15)
[2019-10-13] MEDS: LORazepam 2 mg/mL INJ 1 mL 0.5 MG IVP ×2 (03:28→09:33)
[2019-10-13] MEDS: morphine 4 mg/mL SDV 1 mL 1 MG IVP ×3 (03:30→10:28)
[2019-10-13] MEDS: budesonide 0.5 mg/2 mL Neb INHALATION (08:33)
--- NOTE | 2019-10-13 09:04 | PC.NURSE ---
patient refuses to wear telemetry.
--- NOTE | 2019-10-13 09:05 | PC.NURSE ---
Respiration effort has improved post administration of morphine. O2 sats have improved to mid to high 90s. RR WNL. Patient has calmed down and is not attempting to get out of bed at this time.
[2019-10-13] MEDS: LORazepam 2 mg/mL INJ 1 mL 1 MG IVP (10:33)
[2019-10-13] MEDS: FUROsemide 10 mg/mL SDV 4mL 40 MG IVP (10:42)
--- NOTE | 2019-10-13 10:47 | PM.PN ---
Subjective Subjective: Interval history: Mr. Anne is seen and examined at bedside today. She has been extremely agitated this morning. She has pulled off her BiPAP and her nasal cannula multiple times today. Just a short while ago she was noted in her room to be cyanotic with O2 sats of 70% having pulled off her oxygen. She continues to have altered mental status and at this morning is only babbling. She is extremely distressed at this time. Had large volume diuresis yesterday evening. This was unable to be quantified as she was in a diaper. Medications: Reviewed: Yes Vitals/I&O/Wt Last Vital Signs Temp 97.8 F 10/13/19 07:00 Pulse 128 H 10/13/19 08:48 Resp 24 H 10/13/19 08:45 BP 120/88 10/13/19 07:00 Pulse Ox 94 10/13/19 08:45 10/12/19 10/13/19 10/13/19 22:59 06:59 14:59 Intake Total 480 / 480 120 / 120 Output Total 350 / 350 Balance 480 / 480 -350 / 130 120 / 120 Physical Exam Narrative: EXAM NARRATIVE: GEN: Awake, respiratory distress ++,tachypneic with RR 40, using accessory muscles, confused and uncomfortable. Clutching at bed and people around her. Morphine 2 mg has been given and she is currently more comfortable. CVS: S1S2 N RS: Poor B/L air entry with audible wheezing Abd: Soft, nt/nd , bs+ DIRECTOR OF ACQUISITION MARKETING: no focal neuro deficits Data : 10/12/19 05:40 10/12/19 05:40 A&P Assessment and plan (1) Acute encephalopathy: Status: Acute Code(s): G93.40 - Encephalopathy, unspecified (2) Pulmonary embolism: Continue Eliquis Status: Acute Code(s): I26.99 - Other pulmonary embolism without acute cor pulmonale (3) Pulmonary nodule: . Status: Acute Code(s): R91.1 - Solitary pulmonary nodule (4) COPD exacerbation: With acute exacerbation. Continue Rocephin, albuterol. DC doxycycline. Status: Acute Code(s): J44.1 - Chronic obstructive pulmonary disease with (acute) exacerbation (5) Hypoxia: Multifactorial secondary to PE, COPD. Continue treatment of underlying conditions. Status: Acute Code(s): R09.02 - Hypoxemia (6) DNR (do not resuscitate): Status: Acute Code(s): Z66 - Do not resuscitate Additional A&P Information Acute encephalopathy with delirium, which is multifactorial related to metabolic abornarmalities, hypoxia, hypercapnea. Delirium leading to patient being agitated, taking off Bipap, extremely uncomfortable.. This morning again she is noted to be in noted to be in respiratory distress with air hunger. Prn morphine and ativan frequency now increased to maximize comfort measures. Additional 40 mg of IV Lasix now and 60 mg IV every 12 standing to help ease the breathing. BNP significantly elevated at 28,000. Discussed with that patient's condition continues to deteriorate in spite of maximal measures and and she is likely to progress to respiratory arrest. He understands, wishes to honor 's wishes for DNR/DNI and wants to maximize comfort measures including use of morphine and Ativan with the understanding that these may lead to respiratory depression. Rest of her family is currently on the way to be with her at bedside. For her COPD exacerbation, continous Bipap is recommended given that she is currently expressing air hunger and cannot be intubated. However because of her agitation she is unlikely to keep it on and at this point in time this goes against her goals of comfort measures. We will try to maintain her on nasal cannula or high flow nasal cannula instead. We will continue Duonebs, continue budesonide inhalation, continue streoids methylprednisone 60mg iv q6h. Additional PE on top of already severe COPD has unfortunately led to a point of decompensation right now. I do believe additional right heart failure is contributing to her severe respiratory distress at this time. Continue treatment for PE with full dose lovenox DVT prophylaxis: Currently on full dose lovenox GI prophylaxis: protonix 40mg Patient is DNR/DNI Attestations Medical Necessity Statement*: Impending respiratory failure, maximizing comfort measures. 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
[2019-10-13] MEDS: morphine 4 mg/mL SDV 1 mL 2 MG IVP ×7 (11:42→23:01)
[2019-10-13] MEDS: LORazepam 2 mg/mL INJ 1 mL IVP ×7 (11:45→23:02)
[2019-10-13] MEDS: FUROsemide 10 mg/mL SDV 2mL 20 MG IVP (12:37)
[2019-10-13] MEDS: enoxaparin 60 mg/0.6 mL Syringe SUBCUT (20:48)
[2019-10-13] MEDS: cefTRIAXone 1,000 MG in sodium chloride 0.9% (plus) 50 ML 100 MG IV (21:21)
[2019-10-14] MEDS: morphine 4 mg/mL SDV 1 mL 2 MG IVP ×9 (02:22→20:39)
[2019-10-14] MEDS: LORazepam 2 mg/mL INJ 1 mL IVP ×6 (02:22→20:39)
[2019-10-14] MEDS: budesonide 0.5 mg/2 mL Neb INHALATION (07:18)
[2019-10-14] MEDS: ipratropium-albuterol 3 mL Neb INHALATION (07:18)
[2019-10-14 07:19] VITALS: PULSE 107; RESP 18; O2SAT 95
[2019-10-14 07:27] VITALS: PULSE 110
[2019-10-14] MEDS: LORazepam 2 mg/mL INJ 1 mL 1 MG IVP ×2 (08:39→10:43)
--- NOTE | 2019-10-14 12:12 | PC.RESP ---
does not think it is necessary to continue at this time.
--- NOTE | 2019-10-14 12:57 | P.PN_ITS ---
Subjective Subjective: Interval history: Patient appears more comfortable this morning. She is lying in bed. She is somnolent. and brother are at bedside right now. Was a little more awake earlier and states she was noted to be gurgling a little bit. Medications: Reviewed: Yes Vitals/I&O/Wt Last Vital Signs Temp 97.7 F 10/13/19 16:05 Pulse 110 H 10/14/19 07:27 Resp 18 10/14/19 07:19 BP 120/88 10/13/19 07:00 Pulse Ox 95 10/14/19 07:19 10/13/19 10/14/19 10/14/19 22:59 06:59 14:59 Intake Total 30 / 150 Balance 30 / 150 Physical Exam Narrative: EXAM NARRATIVE: Gen: Next Lying comfortably in bed. Respiratory system is clear to auscultation posteriorly. Not auscultated anteriorly for patient comfort. Data : 10/12/19 05:40 10/12/19 05:40 A&P Assessment and plan (1) Acute encephalopathy: Status: Acute Code(s): G93.40 - Encephalopathy, unspecified (2) Pulmonary embolism: Continue Eliquis Status: Acute Code(s): I26.99 - Other pulmonary embolism without acute cor pulmonale (3) Pulmonary nodule: . Status: Acute Code(s): R91.1 - Solitary pulmonary nodule (4) COPD exacerbation: Status: Acute Code(s): J44.1 - Chronic obstructive pulmonary disease with (acute) exacerbation (5) Hypoxia: Status: Acute Code(s): R09.02 - Hypoxemia (6) DNR (do not resuscitate): Status: Acute Code(s): Z66 - Do not resuscitate Additional A&P Information Acute encephalopathy with delirium, which is multifactorial related to metabolic abornarmalities, hypoxia, hypercapnea. Delirium leading to patient being agitated, taking off Bipap, extremely uncomfortable.. For most part of this admission, patient has been noted to be in respiratory distress with air hunger. After extensive discussion with her at bedside over several days, he feels that patient has been suffering too long and wants to focus on maximizing comfort. Prn morphine and ativan to maximize comfort measures. Will keep medical management with lasix and lovenox for now, unclear why lasix was held overnight. This has been discussed with who wants to keep these going alongside of comfort measures. However if she loses iv access or agitated by frequent s/c injections, we will hold off on these. No further labs or blood gas draws No further Bipap as it distresses patient Oxygen and nebulization now prn Stop frequent vital sign check. Reduce streoids methylprednisone 60mg iv q12h. Additional PE on top of already severe COPD has unfortunately led to a point of decompensation right now. I do believe additional right heart failure is contributing to her severe respiratory distress at this time as well. Continue treatment for PE with full dose lovenox. change to 1.5mg/kg q24h dosing to minimize injections. 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
[2019-10-14] MEDS: enoxaparin 100 mg/mL Syringe 90 MG SUBCUT (13:49)
[2019-10-14] MEDS: FUROsemide 10 mg/mL SDV 10mL 60 MG IVP (13:54)
[2019-10-14 14:34] VITALS: RESP 16
[2019-10-14 19:56] VITALS: PULSE 106; RESP 22; O2SAT 96
[2019-10-14 20:39] VITALS: RESP 16
[2019-10-15] VITALS (10 sets, daily range): PULSE 108; RESP 14–26; O2SAT 99
[2019-10-15] MEDS: LORazepam 2 mg/mL INJ 1 mL IVP ×9 (00:28→21:19)
[2019-10-15] MEDS: morphine 4 mg/mL SDV 1 mL 2 MG IVP ×9 (00:28→21:18)
[2019-10-15] MEDS: FUROsemide 10 mg/mL SDV 10mL 60 MG IVP ×2 (01:39→13:36)
--- NOTE | 2019-10-15 11:59 | PC.CHAP ---
Pastoral Care Encounter/Spiritual Assessment Type of Contact [] Declined hardscape foreman visit [x] Patient/Family/Request visit [] Outpatient visit [] Follow-up visit [] Physician referral [] Code/Alert [] Routine visit [x] Staff referral [] Actively dying [] Patient sleeping [] Family support [] [] Out of room [] Palliative care [] [] Receiving care in room [] Pre-surgical visit [] Trauma [] Long length of stay [] ICU visit [] Other: Relational/Emotional Strength [x] Patient feels connected with others/family/visitors/staff [] Distress [] Loneliness/isolation [] Abandonment Spirituality of Patient [x] Person of Vijaya [x] Attends Yarsanism of their Vijaya [x] Believes in Prayer [] Reads Bible or Uatsdin materials [] There are Spiritual issues to be addressed Mold Yard Supervisor Interventions [x] Prayer [x] Active listening [x] Non-anxious presence [x] Spiritual/emotional support [] Crisis/trauma care [x] Spiritual counseling [] Bereavement support [] Provided bereavement packet [] Provided Bible/devotional materials [] Provided toy/stuffed animal, coloring book to patient or family member [x] Completed spiritual assessment [] Provided Communion [] Anointing/[place] [] Salvation [] Other: Impact on Illness or Injury [] Angry [] Fearful [] Anxious [] Often cries [] Exhaustion [] Unable to work [] Unable to attend religious [] Unable to walk/stand [] Unable to read [] Unable to drive [] Unable to eat/drink [] Unable to sleep [] Unable to be with family [] Other: Summary Mold Yard Supervisor prayed with 2 family members, arranged Hospital to contact [facility]. Time spent with patient 15 minutes.
[2019-10-15] MEDS: enoxaparin 100 mg/mL Syringe 90 MG SUBCUT (13:37)
--- NOTE | 2019-10-15 14:37 | PM.PN ---
Subjective Subjective: Interval history: Patient appears comfortable. Son and at bedside. No acute events Medications: Reviewed: Yes Vitals/I&O/Wt Last Vital Signs Temp 97.7 F 10/13/19 16:05 Pulse 108 H 10/15/19 07:26 Resp 14 10/15/19 13:37 BP 120/88 10/13/19 07:00 Pulse Ox 99 10/15/19 07:26 Physical Exam Narrative: EXAM NARRATIVE: Gen: Lying comfortably in bed. B/L coarse crackles all over. Other exam not performed for patient comfort Not auscultated anteriorly for patient comfort. Data : 10/12/19 05:40 10/12/19 05:40 Micro: Microbiology 10/09/19 16:21 Blood Culture - Final Blood NO GROWTH AFTER 5 DAYS 10/09/19 15:54 Blood Culture - Final Blood NO GROWTH AFTER 5 DAYS A&P Assessment and plan (1) Acute encephalopathy: Status: Acute Code(s): G93.40 - Encephalopathy, unspecified (2) Pulmonary embolism: Continue Eliquis Status: Acute Code(s): I26.99 - Other pulmonary embolism without acute cor pulmonale (3) Pulmonary nodule: . Status: Acute Code(s): R91.1 - Solitary pulmonary nodule (4) COPD exacerbation: Status: Acute Code(s): J44.1 - Chronic obstructive pulmonary disease with (acute) exacerbation (5) Hypoxia: Status: Acute Code(s): R09.02 - Hypoxemia (6) DNR (do not resuscitate): Status: Acute Code(s): Z66 - Do not resuscitate Additional A&P Information Acute encephalopathy with delirium, which is multifactorial related to metabolic abornarmalities, hypoxia, hypercapnea. Delirium leading to patient being agitated, taking off Bipap, extremely uncomfortable.. For most part of this admission, patient has been noted to be in respiratory distress with air hunger. After extensive discussion with her at bedside over several days, he feels that patient has been suffering too long and wants to focus on maximizing comfort. Prn morphine and ativan to maximize comfort measures. Will discontinue lasix today as it makes her urinate excessively with agitation during frequent diaper changes. Will D/c steroids as not likely to provide any further benefit. In the absence of other measures, unlikely that keeping lovenox will provide additional benefit. Will keep discussion ongoing with family. No further labs or blood gas draws No further Bipap as it distresses patient Oxygen and nebulization now prn Stopvital sign check. DVT prophylaxis: On lovenox GI prophylaxis: protonix 40mg may be stopped now that steroids have been discontinued Patient is DNR/DNI Dispo: Hospice referral. Likely SNF with hospice vs home hospice Attestations Medical Necessity Statement*: Comfort care, dispo likely SNF vs home with hospice Coding Level of Care Code Acute Senior Telecommunications Engineer for Chg Fwd Diagnoses Acute encephalopathy G93.40 Pulmonary embolism I26.99 Pulmonary nodule R91.1 COPD exacerbation J44.1 Hypoxia R09.02 DNR (do not resuscitate) Z66
[2019-10-16 01:53] VITALS: RESP 18
[2019-10-16] MEDS: morphine 4 mg/mL SDV 1 mL 2 MG IVP (01:53)
--- NOTE | 2019-10-16 05:45 | PC.NURSE ---
MRS. BRAYDEN SCHNEIDER AT 0456 ON 10/16/2019. CHARGE NURSE WAS NOTIFIED, CAME TO BEDSIDE AND VERIFIED . FAMILY WAS NOTIFIED AND STATED THAT THEY WILL NOT BE COMING IN THEY WILL BE GOING TO [place] TO FIND A HOME FOR THE PATIENT. NUCLEAR AUXILIARY OPERATOR WAS NOTIFIED OF EVENT.
--- NOTE | 2019-10-16 07:45 | PC.NURSE ---
ROSARIO TRANSPLANT CALLED AND SAVING SIGHT CALLED AND BOTH REPORTED THAT MRS. SCHNEIDER IS NOT A CANDIDATE FOR ORGAN DONATION OR EYE DONATION. BUILDING AND CONSTRUCTION MANAGER WAS NOTIFIED. PT ALSO CALLED AND DISCUSSED THAT HE NOTIFIED [facility] OF HER EXPIRATION AND WOULD LIKE FOR THEM TO TAKE HER. HOME WAS CONTACTED BY NURSE AND ARE ON THEIR WAY TO RECEIVE THE BODY.
--- NOTE | 2019-10-19 22:38 | PM.DDS ---
Discharge Providers DDS Date of Admission: 10/09/19 18:35 Date Summary Completed: 10/19/19 Attending Provider at Admission: Cam Mariee Time of : 04:56 Attending Provider at Discharge: Allegra Hayes MD Primary Care Provider: MATTHEW Correa Diagnoses Hospital Diagnoses (1) Acute encephalopathy: (2) Pulmonary embolism: (3) Pulmonary nodule: (4) COPD exacerbation: (5) Hypoxia: (6) DNR (do not resuscitate): Reason for Visit Reason for Visit: Reason For Visit: AMS Brief History: summary is based on review of patient chart. Per notes, Autumn Anne was a 64 year old female with end stage oxygen dependent 2 L COPD at home, active smoker, obstructive sleep apnea (not using CPAP at home), chronic back pain(uses oxycodone), hypothyroidism, hypertension, anxiety depression and GERD presented to emergency department on 10/10/19 with worsening of shortness of breath. Patient was seen 2 days DRY BOX OPERATOR in the ED as well for her shortness of breath she was given Z-Aden and Medrol ahd discharged home. At home she became more confused and increasingly somnolent. Upon evaluation she was found to have COPD exacerbation and CTA of the chest showed a lingular PE. Echocardiogram was performed which showed dilated right ventricle with diminished ejection fraction. She received treatment with supplemental 02, iv steroids, inhaled duonebs, pulmicort, lasix as appropriate and was started on anticoagulation with eliquis, later changed to full dose lovenox. Incidentally noted was pulmonary nodule with irregular margins anterior apical segment left upper lobe which appeared suspicious for malignancy. CT head was negative for acute intracranial abnormalities. In spite of maximal medical efforts directed towards improving her medical condition, patient continued to decline and remained persistently encpahalopathic. She was noted to have Co2 narcosis, however had a hard time tolerting BIPAP. She was DNI/DNR per her last known wishes, mechanical ventilation was therefore not proceeded with. After discussion between Dr. hayes and patient's , it was decided that family wanted to focus on maximizing comfort and she was then started on comfort measures. Patient eventually passed on 10/16/19 at 4:56am per nursing documentation. Summary Date and Time of : Date of : 10/16/19 Time of : 04:56 Additional Data: Advance directives?: Yes Discharge Plan Discharge Patient Disposition: At Medical Facility Condition: Prescriptions: No Action benzonatate [Tessalon Perles] 100 mg capsule 100 mg PO TID PRN (Reason: Cough) RF: 0 rizatriptan [Maxalt-LITERACY TEACHER] 10 mg tablet,disintegrating 10 mg PO ONCE PRN (Reason: Headache) RF: 0 budesonide [Pulmicort] 0.5 mg/2 mL suspension for nebulization 0.5 mg INHALATION BID 90 Days Qty: 360 RF: 3 guaifenesin 600 mg tablet extended release 12hr 600 mg PO BID PRN (Reason: cough) Qty: 60 RF: 0 fluticasone propion-salmeterol [Advair Diskus] 100-50 mcg/dose blister with device 1 puff INHALATION BID RF: 0 albuterol sulfate 90 mcg/actuation aerosol powdr breath activated 2 inh INHALATION Q6H PRN (Reason: Shortness Of Breath) RF: 0 albuterol sulfate 2.5 mg /3 mL (0.083 %) solution for nebulization 2.5 mg INHALATION Q4H PRN (Reason: Shortness Of Breath) RF: 0 codeine-guaifenesin 10-100 mg/5 mL liquid 5 ml PO Q4H PRN (Reason: Cough) RF: 0 cyclobenzaprine 10 mg tablet 5 mg PO TID PRN (Reason: Spasms) RF: 0 diazepam 5 mg tablet 5 mg PO TID PRN (Reason: Spasms) RF: 0 fluticasone propionate [Flonase Allergy Relief] 50 mcg/actuation spray,suspension 2 spray INTRANASAL DAILY RF: 0 gabapentin 600 mg tablet 600 mg PO TID RF: 0 hydrochlorothiazide 50 mg tablet 50 mg PO QAM RF: 0 omeprazole 20 mg capsule,delayed release(DR/EC) 20 mg PO DAILY RF: 0 oxycodone 30 mg tablet See Rx Instructions .ROUTE .COMPLEX PRN (Reason: Pain) RF: 0 Premarin 0.625 mg tablet 0.625 mg PO DAILY RF: 0 montelukast [Singulair] 10 mg tablet 10 mg PO DAILY RF: 0 Spiriva with HandiHaler 18 mcg capsule, w/inhalation device 1 cap INHALATION DAILY RF: 0 prednisone 10 mg tablet 10 mg PO DAILY Qty: 14 RF: 0 Aspir-81 81 mg Tablet,Delayed Release (Dr/Ec) 81 mg PO DAILY RF: 0 Lidoderm 5 % Adhesive Patch,Medicated See Rx Instructions .ROUTE .COMPLEX RF: 0 diclofenac sodium 1 % Gel 4 g TOPICAL DAILY PRN (Reason: Pain) RF: 0 Discharge Date/Time: 10/16/19 10:38 DS Attestations Time Spent in /Discharge Care*: less than 30 min Quality - AMI: AMI present?: No Quality - Stroke: CVA present?: No Symptom Onset Unknown: No Quality - VTE: VTE present?: Yes Deep Vein Thrombosis/Pulmonary Embolism Present on Admission: No Coding Level of Care Code Acute Otolaryngology Rep for [facility] Fwd Diagnoses Acute encephalopathy G93.40 Pulmonary embolism I26.99 Pulmonary nodule R91.1 COPD exacerbation J44.1 Hypoxia R09.02 DNR (do not resuscitate) Z66
== END 2019-10-16 10:38 | disposition expired | DRG 175 ==
LOC: ER 18:49 → MEDSURG 18:50
PROVIDERS: Internal Medicine; Admitting Provider Internal Medicine; Emergency Provider Family Medicine; Family Provider Nurse Practitioner; PCP Nurse Practitioner; Visit Provider Student in an Organized Health Care Education/Training Program
DX: I26.99 Other pulmonary embolism without acute cor pulmonale (principal); G93.41 Metabolic encephalopathy; J44.1 Chronic obstructive pulmonary disease with (acute) exacerbation; Z99.81 Dependence on supplemental oxygen; Z66 Do not resuscitate; G47.33 Obstructive sleep apnea (adult) (pediatric); G89.29 Other chronic pain; E03.9 Hypothyroidism, unspecified; I10 Essential (primary) hypertension; F41.9 Anxiety disorder, unspecified; F32.9 Major depressive disorder, single episode, unspecified; K21.9 Gastro-esophageal reflux disease without esophagitis; E78.5 Hyperlipidemia, unspecified; Z90.49 Acquired absence of other specified parts of digestive tract; F17.210 Nicotine dependence, cigarettes, uncomplicated; R91.1 Solitary pulmonary nodule
CPT/HCPCS: 12345; 36415; 36416; 36600; 70450; 71045; 71275; 80048; 80051; 80053; 80307; 81003; 82009; 82803; 82810; 82962; 83605; 83690; 83880; 83986; 84484; 85025; 85378; 87040; 93005; 93306; 93970; 94640; 94660; 94762; 96372; 96374; 96375; 99282; J0696; J1650; J1940; J2060; J2270; J2405; J2930; J3480; J7030; J7040; J7626; Q9967